=== PATIENT | female | born 1965 | race Caucasian/White ===

== ENCOUNTER 2020-03-21 11:51 | Inpatient (IN) ==
--- NOTE | 2020-03-21 12:00 | Emergency Department Note ---
History of Present Illness General Chief complaint: Abdominal Pain Stated complaint: ABD PAIN Time Seen by Provider: 03/21/20 11:58 History of Present Illness Maximum Pain Intensity: 7 55-year-old female who presents to the emergency department with complaint of intermittent lower abdominal pain that has been increasing and becoming more constant for the past few weeks. The patient reports undergoing a umbilical hernia mesh repair on 02/05/[address] Keller. The patient reports improvement over the following 2 weeks, then started to develop intermittent "cramping". The patient reports that she was referred to her PCP, who checked a urinalysis and diagnosed her with UTI. The patient took amoxicillin without any relief of symptoms. The patient has had intermittent and mild nausea without vomiting. Patient also denies any pain radiating into the back or chest. She denies fever or chills. The patient did have a normal bowel movement yesterday. The patient currently rates her discomfort a 7 out of 10. Home Medications Medication Instructions Recorded Confirmed Type atorvastatin 80 mg PO QAM 02/04/20 03/21/20 History sertraline 200 mg PO QAM 02/04/20 03/21/20 History amlodipine 2.5 mg PO BID 03/21/20 03/21/20 History naproxen 500 mg PO DAILY PRN 03/21/20 03/21/20 History omeprazole 40 mg PO DIRECTED 03/21/20 03/21/20 History Allergies Allergy/AdvReac Type Severity Reaction Status Date / Time No Known Allergies Allergy Verified 02/04/20 23:19 Past Med/Surg History Medical History No pertinent past medical history Obesity Surgical History History of partial hysterectomy Hx of umbilical hernia repair Social History Smoking Status: Never smoker Second Hand Exposure: No; Do You Dip or Chew Tobacco: No; Tobacco Cessation Education Requested by Patient: No Hx Alcohol Use: Yes Alcohol type: beer and wine Hx Substance Use: No Preferred Language: Telugu Communication Ability: Effective Route Sales Associate Required: No Beliefs That Will Affect Care: None marital status: Current Living Situation: Family current occupational status: employed Other Information That Helps Us Care for You: No Feels Safe at Home: Yes Safety Concerns: Feels Safe At This Time Assistive Devices: Glasses Review of Systems 10 system review was performed and was negative except for pertinent positives and negatives as indicated in history of present illness Physical Exam Vital Signs Vital Signs - 24 hr 03/21/20 11:51 03/21/20 13:51 Temperature 36.6 C Temperature Source Temporal Artery Scan Pulse Rate 73 Pulse Rate [Finger] 65 Respiratory Rate 18 16 Blood Pressure 156/101 H Blood Pressure [Right Arm] 166/88 H Blood Pressure Mean 119 Blood Pressure Mean [Right Arm] 114 Blood Pressure Position [Right Arm] Lying Pulse Oximetry 95 97 Oxygen Delivery Method Room Air Room Air Sepsis Recent Fever Within 48 Hours No Sepsis New/Unexplained Change in Mental Status No Sepsis Action Taken by Nursing No Action Required CONSTITUTIONAL: Healthy and well nourished. Patient does not appear in any acute distress. HEENT: Normocephalic, atraumatic. Ears and nares are clear. Mucous membranes are moist. NECK: Full active range of motion without discomfort. LYMPHATICS: No cervical chain adenopathy. RESPIRATORY: Clear to auscultation bilaterally with no wheezing, crackles, rhonchi or stridor. CARDIOVASCULAR: Regular rate and rhythm with no murmurs, rubs or gallops. GASTROINTESTINAL: Bowel sounds present in all quadrants. Patient has mild suprapubic tenderness to palpation. No rigidity, guarding or rebound. Negative CVA tenderness. Negative McBurney's point tenderness. Examination of the umbilical surgical site does not show any obvious soft tissue edema, induration, fluctuance or diastases. MUSCULOSKELETAL: Full range of motion of all joints without discomfort. INTEGUMENTARY: No rash or other significant dermatologic conditions noted. HEMATOLOGIC: No ecchymosis or petechiae. PSYCHIATRIC: Positive affect. NEUROLOGIC: No focal neurologic deficits noted. Course Course Patient history and physical exam were performed. Nurses notes were reviewed. Vital signs were reviewed, showing an elevated blood pressure 156/101. The patient is afebrile. The patient also does not appear in any acute distress. IV access was established, and labs were drawn. The patient was hydrated with a liter normal saline, and was administered IV Tylenol for pain. Review of labs shows a mild leukocytosis with left shift and no bandemia. AST is mildly elevated, otherwise remaining CMP and lipase are normal. Urinalysis shows trace hematuria with 3+ leukocytes. This was a contaminated sample; urine culture was ordered. CT with IV contrast of the abdomen and pelvis confirms a small bowel obstruction with observed transition point. The case was further discussed with Dr. Hernandez, ED attending physician, who recommended sling and NG tube, and consulting general surgery. NG tube was ordered. The case was then further discussed with Dr. Keller, general surgeon on- call who also performed the patient's surgery. Dr. Keller examined the patient, and will be admitting the patient for further observation. Dr. Keller agrees with NG placement with low intermittent suction. Please see Dr. Keller's dictation for further treatment and final disposition. Administered Medications Discontinued Medications Acetaminophen (Acetaminophen 1000 Mg/100 Ml Iv) 1,000 mg IV ONE ONE Stop: 03/21/20 12:16 Last Admin: 03/21/20 13:38 Dose: 1,000 mg Documented by: [id number] Sodium Chloride (Nss 1000ml) 1,000 mls @ 999 mls/hr IV .Q1H1M ONE Stop: 03/21/20 13:13 Last Infusion: 03/21/20 13:41 Dose: 0 mls/hr Documented by: [id number] Admin: 03/21/20 12:40 Dose: 999 mls/hr Documented by: [id number] Ciprofloxacin (Cipro / D5w) 400 mg in 200 mls @ 100 mls/hr IV NOW ONE Stop: 03/21/20 18:29 Last Admin: 03/21/20 18:39 Dose: 100 mls/hr Documented by: [id number] Metronidazole (Flagyl) 500 mg in 100 mls @ 100 mls/hr IV NOW ONE Stop: 03/21/20 17:29 Last Infusion: 03/21/20 18:39 Dose: 0 mls/hr Documented by: [id number] Admin: 03/21/20 17:22 Dose: 100 mls/hr Documented by: [id number] Ioversol (Ioversol 100ml) 93 ml IV ONCE ONE Stop: 03/21/20 13:23 Last Admin: 03/21/20 13:22 Dose: 93 ml Documented by: [id number] Medical Decision Making Medical Records Attestation: I reviewed the patient's medical records. Home Medications Current Medication List: was personally reviewed by me Laboratory Data Attestation: I reviewed the patient's lab results. Result diagrams: 03/21/20 12:30 03/21/20 12:30 Lab Results 03/21/20 03/21/20 03/21/20 Range/Units 12:25 12:30 12:30 WBC 11.16 H (4.8-10.8) K/uL RBC 4.52 (4.2-5.4) M/uL Hgb 13.9 (12.0-16.0) g/dL Hct 41.4 (37-47) % MCV 91.6 (80-100) fL MCH 30.8 (25-34) pg MCHC 33.6 (32-36) g/dL RDW Std Deviation 45.8 (36.4-46.3) fL RDW Coeff of Fadumo 13.7 (11.5-14.5) % Plt Count 263 (130-400) K/uL MPV 11.2 H (7.4-10.4) fL Immature Gran % (Auto) 0.2 % Neut % (Auto) 72.5 % Lymph % (Auto) 17.8 % Teller % (Auto) 6.8 % Eos % (Auto) 2.3 % Baso % (Auto) 0.4 % Neut # (Auto) 8.08 H (1.4-6.5) K/uL Lymph # (Auto) 1.99 (1.2-3.4) K/uL Teller # (Auto) 0.76 H (0.11-0.59) K/uL Eos # (Auto) 0.26 (0-0.5) K/uL Baso # (Auto) 0.05 (0-0.2) K/uL Immature Gran # (Auto) 0.02 (0.00-0.02) K/uL Sodium 141 (136-145) mmol/L Potassium 3.9 (3.5-5.1) mmol/L Chloride 107 (98-107) mmol/L Carbon Dioxide 25 (21-32) mmol/L Anion Gap 9.0 (3-11) BUN 12 (7-18) mg/dl Creatinine 0.78 (0.6-1.2) mg/dl Est Cr Clr Drug Dosing 85.7 ml/min Est GFR ( Amer) 97.8 Est GFR (Non-Af Amer) 84.4 BUN/Creatinine Ratio 14.9 (10-20) Glucose 93 (70-99) mg/dl Calcium 9.5 (8.5-10.1) mg/dl Total Bilirubin 0.6 (0.2-1) mg/dl AST 49 H (15-37) U/L ALT 64 (12-78) U/L Alkaline Phosphatase 114 (45-117) U/L Total Protein 8.2 (6.4-8.2) gm/dl Albumin 3.7 (3.4-5.0) gm/dl Globulin 4.5 H (2.5-4.0) gm/dl Albumin/Globulin Ratio 0.8 L (0.9-2) Lipase 182 (73-393) U/L Urine Color Yellow Urine Appearance Clear (Clear) Urine pH 6.5 (4.5-7.5) Ur Specific [place] 1.018 (1.000-1.030) Urine Protein Negative (Negative) Urine Glucose (UA) Negative (Negative) Urine Ketones Negative (Negative) Urine Blood Trace H (Negative) Urine Nitrite Negative (Negative) Urine Bilirubin Negative (Negative) Urine Urobilinogen Negative (Negative) Ur Leukocyte Esterase 3+ H (Negative) Urine WBC (Auto) >30 H (0-5) /hpf Urine RBC (Auto) 0-4 (0-4) /hpf U Hyaline Cast (Auto) 5-10 H (0-5) /lpf U Epithel Cells (Auto) >30 H (0-5) /lpf Urine Bacteria (Auto) 1+ H (Negative) Imaging Data Attestation: I personally reviewed and interpreted this imaging study as follows: My Impression: My interpretation of a CT with IV contrast of the abdomen and pe lvis shows evidence for a small bowel obstruction. Radiologist also makes mention of a 6 cm fluid collection within the subcutaneous tissue at the operative site. Cholelithiasis is also noted. No evidence for diverticulitis or appendicitis. Radiologist report was also reviewed. Radiologist's Impression: ABDOMEN AND PELVIS CT WITH IV CONTRAST CT DOSE: 898.56 mGy.cm HISTORY: Acute generalized abdominal pain with prior herniorrhaphy Lower abd ominal pain - hx umbilical herniorrhaphy TECHNIQUE: Multiaxial CT images of the abdomen and pelvis were performed following the IV administration of 93 cc of Optiray 320, A dose lowering technique was utilized adhering to the principles of ALARA. COMPARISON STUDY: CT abdomen and pelvis 02/04/2020. FINDINGS: Imaged inferior cardiac chambers are unremarkable. Clear lung bases. No pneumatosis or pneumoperitoneum. Pancreas, spleen and adrenal glands are unremarkable. Cholelithiasis without CT evidence of acute cholecystitis. Unremarkable liver. Patency of the hepatic and portal veins. Unremarkable kidneys, ureters and urinary bladder. Unremarkable uterus. Cystic foci of the right adnexum redemonstrated measuring up to 4.0 cm. No aortic aneurysm or adenopathy. Mild nonspecific stranding of the mid mesentery is unchanged. Noninflamed appendix. Dilated stool-filled loops of small bowel within the right mid abdomen and upper pelvis anteriorly measure up to 3.4 cm transversely. There is a transition point noted on image 262 series 3 which demonstrates moderate circumferential wall thickening. There is adjacent perinephric stranding and tethering of the small bowel on image 268 series 3. Trace interloop edema with a few scattered mildly prominent adjacent lymph nodes. Prior herniorrhaphy with 6.0 x 2.1 x 4.7 cm fluid collection within the subcutaneous tissues at the operative bed. Unremarkable soft tissues. The bones appear intact. No acute fracture or suspicious bone lesion. Moderate space narrowing at L5-S1 with posterior disc osteophyte complex. IMPRESSION: 1. Small bowel obstruction with transition point noted within the anterior mid aspect of the lower abdomen/upper pelvis, possibly secondary to underlying small bowel adhesions. There is moderate wall thickening at the transition point. 2. No pneumatosis or pneumoperitoneum. 3. Recent periumbilical hernia repair with 6.0 cm fluid collection within the subcutaneous tissues at the operative bed suggestive of a seroma. Sterility cannot be determined by imaging alone. 4. Normal appendix 5. Cholelithiasis. Blood Pressure Blood Pressure Findings: Elevated blood pressure MDM Narrative She presents emergency department with complaint of intermittent abdominal pain that is now becoming more constant in nature. The patient is status post umbilical hernia mesh repair approximately 6.[address] imaging today is concerning for small bowel obstruction, possibly secondary to adhesions. Fortunately, the patient has not had any significant nausea or vomiting. She also had a normal bowel movement yesterday. The patient is afebrile and has no significant leukocytosis to suggest overwhelming infection. Additional lab work is not suggestive of pancreatitis, cholecystitis or hepatitis. CT does show leny dence for cholelithiasis. The patient will be admitted for further observation per conversation with Dr. Keller. Impression & Plan Small bowel obstruction, Hx of umbilical hernia repair Discharge Plan Visit Data Chief Complaint: Abdominal Pain Stated Complaint: ABD PAIN ED Provider: Sabino Hernandez ED Midlevel Provider: Oni Upton Discharge Problem: Small bowel obstruction, Hx of umbilical hernia repair Patient Disposition: Admitted As Inpatient Discharge Instructions Interventions: ED Discharge Assessment Last Done: 03/21/20 18:12
[2020-03-21] MEDS ORDERED: SODIUM CHLORIDE 0.9% 1000ML 1,000 ML IV ONE (12:13)
[2020-03-21] MEDS ORDERED: ACETAMINOPHEN 1000 MG/100 ML IV IV ONE (12:15)
[2020-03-21 12:46] LABS: Basophils # (auto) 0.05 K/uL (0-0.2); Basophils % (auto) 0.4 %; Eosinophils # (auto) 0.26 K/uL (0-0.5); Eosinophils % (auto) 2.3 %; Hematocrit (blood only) 41.4 % (37-47); Hemoglobin 13.9 g/dL (12.0-16.0); Immature Granulocytes # (auto) 0.02 K/uL (0.00-0.02); Immature Granulocytes % (auto) 0.2 %; Lymphocytes # (auto) 1.99 K/uL (1.2-3.4); Lymphocytes % (auto) 17.8 %; Mean Corpuscular Hemoglobin 30.8 pg (25-34); Mean Corpuscular Hgb Conc 33.6 g/dL (32-36); Mean Corpuscular Volume 91.6 fL (80-100); Mean Platelet Volume 11.2 fL (7.4-10.4); Monocytes # (auto) 0.76 K/uL (0.11-0.59); Monocytes % (auto) 6.8 %; Neutrophils # (auto) 8.08 K/uL (1.4-6.5); Neutrophils % (auto) 72.5 %; Platelet Count 263 K/uL (130-400); RDW Coefficient of Variation 13.7 % (11.5-14.5); RDW Standard Deviation 45.8 fL (36.4-46.3); Red Blood Count 4.52 M/uL (4.2-5.4); White Blood Count 11.16 K/uL (4.8-10.8)
[2020-03-21 12:49] LABS: Appearance Urine Clear (Clear); Bacteria Urine Automated 1+ (Negative); Bilirubin Urine Negative (Negative); Blood Urine Trace (Negative); Color Urine Yellow; Epithelial Cell Urine Auto >30 /lpf (0-5); Glucose Urine UA Negative (Negative); Ketones Urine Negative (Negative); Leukocyte Esterase Urine 3+ (Negative); Nitrite Urine Negative (Negative); Protein Urine Negative (Negative); RBC Urine Automated 0-4 /hpf (0-4); Specific Gravity Urine 1.018 (1.000-1.030); Urobilinogen Urine Negative (Negative); WBC Urine Automated >30 /hpf (0-5); pH Urine 6.5 (4.5-7.5)
[2020-03-21 13:03] LABS: Albumin Level 3.7 gm/dl (3.4-5.0); BUN Creatinine Ratio 14.9 (10-20); Calcium 9.5 mg/dl (8.5-10.1); Creatinine Clr Calc Pharmacy 85.7 ml/min; Est GFR (African American) 97.8; Est GFR (Non-African American) 84.4; Potassium 3.9 mmol/L (3.5-5.1)
[2020-03-21 13:06] LABS: Albumin Globulin Ratio 0.8 (0.9-2); Bilirubin,Total 0.6 mg/dl (0.2-1); Globulin 4.5 gm/dl (2.5-4.0); Total Protein 8.2 gm/dl (6.4-8.2)
[2020-03-21] MEDS ORDERED: OPTIRAY 320 100ml IV ONE (13:22)
--- NOTE | 2020-03-21 14:05 | CT Scan Report ---
ABDOMEN AND PELVIS CT WITH IV CONTRAST CT DOSE: 898.56 mGy.cm HISTORY: Acute generalized abdominal pain with prior herniorrhaphy Lower abdominal pain - hx umbilic al herniorrhaphy TECHNIQUE: Multiaxial CT images of the abdomen and pelvis were performed following the IV administrat ion of 93 cc of Optiray 320, A dose lowering technique was utilized adhering to the principles of AL JASPREET. COMPARISON STUDY: CT abdomen and pelvis 02/04/2020. FINDINGS: Imaged inferior cardiac chambers are unremarkable. Clear lung bases. No pneumatosis or pneu moperitoneum. Pancreas, spleen and adrenal glands are unremarkable. Cholelithiasis without CT evidenc e of acute cholecystitis. Unremarkable liver. Patency of the hepatic and portal veins. Unremarkable kidneys, ureters and urinary bladder. Unremarkable uterus. Cystic foci of the right adne xum redemonstrated measuring up to 4.0 cm. No aortic aneurysm or adenopathy. Mild nonspecific stranding of the mid mesentery is unchanged. Noninflamed appendix. Dilated stool-xiomara led loops of small bowel within the right mid abdomen and upper pelvis anteriorly measure up to 3.4 c m transversely. There is a transition point noted on image 262 series 3 which demonstrates moderate c ircumferential wall thickening. There is adjacent perinephric stranding and tethering of the small nathan wel on image 268 series 3. Trace interloop edema with a few scattered mildly prominent adjacent lymph nodes. Prior herniorrhaphy with 6.0 x 2.1 x 4.7 cm fluid collection within the subcutaneous tissues at the operative bed. Unremarkable soft tissues. The bones appear intact. No acute fracture or suspicious bone lesion. Mode rate space narrowing at L5-S1 with posterior disc osteophyte complex. IMPRESSION: 1. Small bowel obstruction with transition point noted within the anterior mid aspect of the lower ab domen/upper pelvis, possibly secondary to underlying small bowel adhesions. There is moderate wall th ickening at the transition point. 2. No pneumatosis or pneumoperitoneum. 3. Recent periumbilical hernia repair with 6.0 cm fluid collection within the subcutaneous tissues at the operative bed suggestive of a seroma. Sterility cannot be determined by imaging alone. 4. Normal appendix 5. Cholelithiasis. ACT 112: Negative or not required by law. The above report was generated using voice recognition software. It may contain grammatical, syntax o r spelling errors. Electronically signed by: Arturo Ferguson M.D. 03/21/2020 2:04 PM
--- NOTE | 2020-03-21 15:26 | Surgery Consultation ---
Date of Consultation March 21, 2020 Assessment & Plan (1) Small bowel obstruction: pt is a 55 year-old female who presents to Er with acute abdominal pain, IMP: SBO, UTI, Plan, no emergent surgery indication now, I recommend to admit pt to hospital conservative treatment first, NPO, NG Tube, to lower intermittent suction, IV fluid, IV antibiotic, repeat labs in morning, KUB in morning, pt may need surgery if pt 's symptoms are getting worse, pt understood, will F/U, D/W ER attending. pt agrees with the plan, I answered all questions, COVID -19 test Present on Admission?: Yes (2) UTI (urinary tract infection): History of Present Illness History of Present Illness Chief complaint: Abdominal Pain Stated complaint: ABD PAIN Time Seen by Provider: 03/21/20 11:58 History of Present Illness Maximum Pain Intensity: 7 55-year-old female who presents to the emergency department with complaint of intermittent lower abdominal pain that has been increasing and becoming more constant for the past few weeks. The patient reports undergoing a umbilical hernia mesh repair on 02/05/2020. The patient reports improvement over the next 2 weeks, then started to develop intermittent "cramping". The patient reports that she was referred to her PCP, who checked a urinalysis and diagnosed her with UTI. The patient took amoxicillin without any relief of symptoms. The p atient has had intermittent and mild nausea without vomiting. Patient also denies any pain radiating into the back or chest. She denies fever or chills. The patient currently rates her discomfort a 7 out of 10. I ( yousif Keller MD) got a call for consult SBO, I reviewed pt's H/P, labs, CT scan with pt, pt has mild abdominal pain, no nausea, no vomiting, last BM yesterday. pt had open repair incarcerated umbilical hernia with mesh on 01/2020. Home Medications Medication Instructions Recorded Confirmed Type atorvastatin 80 mg PO QAM 02/04/20 03/21/20 History sertraline 200 mg PO QAM 02/04/20 03/21/20 History amlodipine 2.5 mg PO BID 03/21/20 03/21/20 History naproxen 500 mg PO DAILY PRN 03/21/20 03/21/20 History omeprazole 40 mg PO DIRECTED 03/21/20 03/21/20 History Allergies Allergy/AdvReac Type Severity Reaction Status Date / Time No Known Allergies Allergy Verified 02/04/20 23:19 Past Med/Surg History Medical History No pertinent past medical history Obesity Surgical History History of partial hysterectomy Hx of umbilical hernia repair Social History Smoking Status: Never smoker Preferred Language: Norwegian marital status: Current Living Situation: Spouse and Family current occupational status: employed Feels Safe at Home: Yes Review of Systems 10 system review was performed and was negative except for pertinent positives and negatives as indicated in history of present illness Allergies Allergy/AdvReac Type Severity Reaction Status Date / Time No Known Allergies Allergy Verified 02/04/20 23:19 Home Medications Medication Instructions Recorded Confirmed Type atorvastatin 80 mg PO QAM 02/04/20 03/21/20 History sertraline 200 mg PO QAM 02/04/20 03/21/20 History amlodipine 2.5 mg PO BID 03/21/20 03/21/20 History naproxen 500 mg PO DAILY PRN 03/21/20 03/21/20 History omeprazole 40 mg PO DIRECTED 03/21/20 03/21/20 History Patient History Medical History No pertinent past medical history Obesity Surgical History History of partial hysterectomy Hx of umbilical hernia repair Social History Smoking Status: Never smoker Preferred Language: Norwegian marital status: Current Living Situation: Spouse and Family current occupational status: employed Feels Safe at Home: Yes Review of Systems Review of Systems: All systems reviewed & are unremarkable except as noted in HPI & below Constitutional: as per Subjective / HPI Eyes: as per Subjective / HPI Ear, Nose, Mouth, Throat: as per Subjective / HPI Respiratory: as per Subjective / HPI Cardiovascular: as per Subjective / HPI Gastrointestinal: as per Subjective / HPI open repair incarcerated umbilical hernia with mesh 01/2020 Genitourinary: as per Subjective / HPI UTI Musculoskeletal: as per Subjective / HPI Integumentary: as per Subjective / HPI Neurologic: as per Subjective / HPI Psychiatric: as per Subjective / HPI Endocrine: as per Subjective / HPI Hematologic / Lymphatic: as per Subjective / HPI Allergy / Immunological: as per Subjective / HPI Physical Exam Constitutional: WD/WN, vitals as above well developed and well nourished Eyes: PERRL, conjunctivae normal, anicteric sclerae ENMT: external ear and nose normal, oropharynx normal Neck: trachea midline, no thyromegaly Respiratory: normal respiratory effort, lungs clear to auscultation normal respiratory effort Cardiovascular: RRR, no murmur, no edema Rate/Rhythm: regular rate and regular rhythm Heart Sounds: normal S1 and normal S2 Gastrointestinal (Abdomen): Percussion/Palpation: abdomen soft mild tenderness scooter-umbilical area, no rebound pain, no distend, no redness, the incision heals well, no bulging, BS + Musculoskeletal: no cyanosis or clubbing, extremities motor strength 5/5 Skin: no rashes, warm and dry Neurologic: awake Psychiatric: Orientation: alert and oriented x 3 Results & Data ([facility]) Vital Signs (Past 12 Hours) Vital Signs Temp Pulse Pulse Resp BP BP Pulse Ox 03/21/20 13:51 65 16 166/88 H 97 03/21/20 11:51 36.6 C 73 18 156/101 H 95 Laboratory Results Abnormal lab results 03/21/20 03/21/20 03/21/20 Range/Units 12:25 12:30 12:30 WBC 11.16 H (4.8-10.8) K/uL MPV 11.2 H (7.4-10.4) fL Neut # (Auto) 8.08 H (1.4-6.5) K/uL [place]inger # (Auto) 0.76 H (0.11-0.59) K/uL AST 49 H (15-37) U/L Globulin 4.5 H (2.5-4.0) gm/dl Albumin/Globulin Ratio 0.8 L (0.9-2) Urine Blood Trace H (Negative) Ur Leukocyte Esterase 3+ H (Negative) Urine WBC (Auto) >30 H (0-5) /hpf U Hyaline Cast (Auto) 5-10 H (0-5) /lpf U Epithel Cells (Auto) >30 H (0-5) /lpf Urine Bacteria (Auto) 1+ H (Negative) Diagnostic Findings ABDOMEN AND PELVIS CT WITH IV CONTRAST CT DOSE: 898.56 mGy.cm HISTORY: Acute generalized abdominal pain with prior herniorrhaphy Lower abdominal pain - hx umbilical herniorrhaphy TECHNIQUE: Multiaxial CT images of the abdomen and pelvis were performed following the IV administration of 93 cc of Optiray 320, A dose lowering technique was utilized adhering to the principles of ALARA. COMPARISON STUDY: CT abdomen and pelvis 02/04/2020. FINDINGS: Imaged inferior cardiac chambers are unremarkable. Clear lung bases. No pneumatosis or pneumoperitoneum. Pancreas, spleen and adrenal glands are unremarkable. Cholelithiasis without CT evidence of acute cholecystitis. Unremarkable liver. Patency of the hepatic and portal veins. Unremarkable kidneys, ureters and urinary bladder. Unremarkable uterus. Cystic foci of the right adnexum redemonstrated measuring up to 4.0 cm. No aortic aneurysm or adenopathy. Mild nonspecific stranding of the mid mesentery is unchanged. Noninflamed appendix. Dilated stool-filled loops of small bowel within the right mid abdomen and upper pelvis anteriorly measure up to 3.4 cm transversely. There is a transition point noted on image 262 series 3 which demonstrates moderate circumferential wall thickening. There is adjacent perinephric stranding and tethering of the small bowel on image 268 series 3. Trace interloop edema with a few scattered mildly prominent adjacent lymph nodes. Prior herniorrhaphy with 6.0 x 2.1 x 4.7 cm fluid collection within the subcutaneous tissues at the operative bed. Unremarkable soft tissues. The bones appear intact. No acute fracture or suspicious bone lesion. Moderate space narrowing at L5-S1 with posterior disc osteophyte complex. IMPRESSION: 1. Small bowel obstruction with transition point noted within the anterior mid aspect of the lower abdomen/upper pelvis, possibly secondary to underlying small bowel adhesions. There is moderate wall thickening at the transition point. 2. No pneumatosis or pneumoperitoneum. 3. Recent periumbilical hernia repair with 6.0 cm fluid collection within the subcutaneous tissues at the operative bed suggestive of a seroma. Sterility cannot be determined by imaging alone. 4. Normal appendix 5. Cholelithiasis.
[2020-03-21] MEDS ORDERED: HYDROmorphone INJ 1 MG/ML SYRINGE IV PRN (15:35)
[2020-03-21] MEDS ORDERED: oxyCODONE/ACETAMINOPHEN 5mg/325mg TAB PO PRN (15:35)
[2020-03-21] MEDS ORDERED: CIPROFLOXACIN / D5W 400 MG/200 ML BAG IV ONE (16:30)
[2020-03-21] MEDS ORDERED: metroNIDAZOLE 500 MG/100 ML BAG IV ONE (16:30)
--- NOTE | 2020-03-21 17:24 | XRay Report ---
XR chest 1V portable HISTORY: 55 years-old Female Confirm NG placement status post placement of an enteric tube COMPARISON: CT abdomen and pelvis of same day, acute abdominal series radiographs 08/17/2019 TECHNIQUE: Portable AP view of the chest FINDINGS: Cardiomediastinal and hilar silhouettes are within normal limits. No pneumothorax, pleural effusion, airspace consolidation or overt pulmonary edema. Degenerative changes of the shoulders and spine. Ent yazmin tube distal tip terminates in the expected location of the distal gastric body. IMPRESSION: Distal tip of the enteric tube terminates within the abdominal left upper quadrant in the region of the distal gastric body. ACT 112: Negative or not required by law. The above report was generated using voice recognition software. It may contain grammatical, syntax o r spelling errors. Electronically signed by: Arturo Ferguson M.D. 03/21/2020 5:23 PM
[2020-03-21] MEDS ORDERED: NON-FORMULARY MEDICATION (Omeprazole 40 mg capsule,delayed release(DR/EC)) PO SCH (18:36)
[2020-03-21] MEDS ORDERED: NAPROXEN 250 MG TAB PO PRN (18:36)
[2020-03-21] MEDS: PANTOprazole 40 MG in SYRINGE 0 ML IV SCH (21:00)
[2020-03-21] MEDS: D5W AND 1/2NSS + 20MEQ KCL 20 MEQ/1,000 ML BAG IV SCH (21:00)
[2020-03-21] MEDS ORDERED: amLODIPine BESYLATE 5 MG TAB PO SCH (21:00)
[2020-03-21] MEDS: hydrALAZINE HCL 20 MG/ML VIAL IV PRN (21:41)
--- NOTE | 2020-03-21 23:25 | Consultation Report ---
DATE OF CONSULTATION: 03/21/2020 CHIEF COMPLAINT: Small-bowel obstruction. HISTORY OF PRESENT ILLNESS: This is a 55-year-old female with past medical history significant for hyperlipidemia, Raynaud's disease, fatty liver, depression with anxiety, who presents with abdominal pain. The patient had incarcerated umbilical hernia repair on 02/05/2020 and she says that for a couple of weeks she was fine and after that she again started having abdominal cramps, the pain like previous, and it got worse, no nausea, no vomiting. Last bowel movement was yesterday. It was not getting better so She came to the ER and CAT scan is showing small-bowel obstruction and surgery admitted the patient. On conservative management . But the patient is having hypertensive episodes, so we were consulted. The patient has no history of hypertension. She takes amlodipine for Raynaud's disease. The patient is pain, and also the patient is anxious as her is out of the town and her 18-year-old is taking care of her dogs and also 95-year-old [id number]. Otherwise, she is doing fine. Denies any headache, no blurred visions, no earache, no runny nose, no sore throat, no cough, no nausea, no fever, no chills, no chest pain, no shortness of breath. Normal bladder movements. Currently resting comfortably and hemodynamically stable. ALLERGIES: No known drug allergies. PAST MEDICAL HISTORY: As mentioned above. PAST SURGICAL HISTORY: Colonoscopy, partial hysterectomy. MEDICATIONS: The patient is on amlodipine 5 mg p.o. daily, atorvastatin 80 mg p.o. a.m., naproxen p.r.n., omeprazole 40 mg p.r.n., Zoloft 200 mg p.o. a.m. FAMILY HISTORY: Significant for father had heart disorder, mother had hypertension, maternal grandmother had diabetes, paternal grandfather had heart disorder and stroke. SOCIAL HISTORY: . No smoking. Alcohol occasional. No drug use. REVIEW OF SYSTEMS: As per HPI. Rest of the review of systems negative. PHYSICAL EXAMINATION: GENERAL: The patient is obese, not in acute distress. VITAL SIGNS: Temperature 36.4, pulse 65, respiratory rate 16, blood pressure 172/95, oxygen 96% on room air. HEENT: Head atraumatic. NG tube seen. NECK: No neck masses seen. CARDIOVASCULAR: S1, S2 heard. Regular rate and rhythm. No murmur, no gallop. RESPIRATORY SYSTEM: Normal AP diameter. No accessory muscle use. No wheezing, no crackles. ABDOMEN: Soft, bowel sounds very sluggish, nontender. No distention. CENTRAL NERVOUS SYSTEM: Cranial nerves II through XII grossly intact, nonfocal. EXTREMITIES: No edema, no erythema. LABORATORY DATA: WBC 11.1, hemoglobin 13.9, hematocrit 41.4, platelets 263. Sodium 141, potassium 3.9, chloride 107, bicarbonate 25, BUN 12, creatinine 0.7, serum glucose 93, calcium 9.5, total bilirubin 0.6, AST 49, ALT 64, alkaline phosphatase 114, lipase 182. Urinalysis positive for leukocyte esterase and positive for bacteria. SARS-CoV-2 RNA negative. IMAGING DATA: Chest x-ray, distal tip of the NG tube terminates within the abdominal left upper quadrant region of the distal gastric body. CT of abdomen and pelvis shows small-bowel obstruction with transition point noted within the anteromedial aspect of the lower abdomen, upper pelvis, possibly secondary to underlying small bowel adhesions. There is moderate wall thickening of the transition point. No pneumatosis or pneumoperitoneum. Recent periumbilical hernia repair with 6 cm fluid collection within the subcutaneous tissues of the operative bed suggestive of seroma. Normal appendix. Cholelithiasis. ASSESSMENT AND PLAN: This is a 55-year-old female who presents with abdominal pain, found to have small-bowel obstruction. 1. Abdominal pain, small-bowel obstruction: Recent incarcerated umbilical hernia repair with mesh placement on 02/05/2020. Surgery admitted the patient. Currently, the patient is n.p.o., IV fluids, NG tube. Further management as per surgery.The patient also started on antibiotics as per surgery. 2. Urinary tract infection, on IV Cipro. We will follow the cultures. 3. Anxiety and depression: Continue Zoloft when able to take po.. 4. Hypertension, could be situational from the anxiety and also from the pain. Will place on IV hydralazine p.r.n. and monitor. 5. History of Raynaud's disease. Can give amlodipine whenever the patient can take p.o. 6. Disposition, as per surgery. [facility]
[2020-03-22] MEDS: metroNIDAZOLE 500 MG/100 ML BAG IV SCH ×3 (01:15→18:32)
[2020-03-22] MEDS: CIPROFLOXACIN / D5W 400 MG/200 ML BAG IV SCH ×2 (05:47→18:29)
[2020-03-22 05:54] LABS: Basophils # (auto) 0.05 K/uL (0-0.2); Basophils % (auto) 0.6 %; Eosinophils # (auto) 0.27 K/uL (0-0.5); Eosinophils % (auto) 3.1 %; Hemoglobin 13.4 g/dL (12.0-16.0); Immature Granulocytes # (auto) 0.01 K/uL (0.00-0.02); Immature Granulocytes % (auto) 0.1 %; Lymphocytes # (auto) 2.06 K/uL (1.2-3.4); Lymphocytes % (auto) 23.3 %; Mean Corpuscular Hemoglobin 30.5 pg (25-34); Mean Corpuscular Hgb Conc 33.5 g/dL (32-36); Mean Corpuscular Volume 90.9 fL (80-100); Mean Platelet Volume 11.3 fL (7.4-10.4); Monocytes # (auto) 0.89 K/uL (0.11-0.59); Monocytes % (auto) 10.1 %; Neutrophils # (auto) 5.56 K/uL (1.4-6.5); Neutrophils % (auto) 62.8 %; Platelet Count 266 K/uL (130-400); RDW Coefficient of Variation 13.7 % (11.5-14.5); RDW Standard Deviation 45.8 fL (36.4-46.3); White Blood Count 8.84 K/uL (4.8-10.8)
[2020-03-22 06:19] LABS: Albumin Level 3.4 gm/dl (3.4-5.0); BUN Creatinine Ratio 10.5 (10-20); Creatinine Clr Calc Pharmacy 83.8 ml/min; Est GFR (African American) 96.3; Est GFR (Non-African American) 83.1; Potassium 3.6 mmol/L (3.5-5.1)
[2020-03-22] MEDS: hydrALAZINE HCL 20 MG/ML VIAL IV PRN ×2 (06:20→20:43)
[2020-03-22 06:22] LABS: Albumin Globulin Ratio 0.9 (0.9-2); Bilirubin,Total 0.6 mg/dl (0.2-1); Globulin 3.9 gm/dl (2.5-4.0); Total Protein 7.3 gm/dl (6.4-8.2)
--- NOTE | 2020-03-22 07:33 | XRay Report ---
KUB CLINICAL HISTORY: Small bowel obstruction. COMPARISON STUDY: CT of the abdomen and pelvis March 21, 2020. FINDINGS: Tip of nasogastric tube is within the distal body of the stomach. Two calcified gallstones are noted. No dilated loops of bowel are identified on this examination however fluid-filled small nathan wel loops may not be visualized by radiography. IMPRESSION: 1. No dilated loops of bowel identified however fluid-filled small bowel loops may not be evident by radiography. 2. Tip of nasogastric tube within the distal body of the stomach. 3. Cholelithiasis. ACT 112: Negative or not required by law. Electronically signed by: Giacomo Garcia M.D. 03/22/2020 7:32 AM
[2020-03-22] MEDS: amLODIPine BESYLATE 5 MG TAB PO SCH (07:46)
[2020-03-22] MEDS: SERTRALINE HCL 100 MG TABLET PO SCH (07:47)
[2020-03-22] MEDS: D5W AND 1/2NSS + 20MEQ KCL 20 MEQ/1,000 ML BAG IV SCH ×3 (07:48→23:10)
[2020-03-22] MEDS ORDERED: bisacodyL 10 MG SUPP PR STA (08:34)
--- NOTE | 2020-03-22 08:36 | Surgery Progress Note ---
Date of Service F/U SBO, pt is doing better, no abdominal pain, passed some gas, no fever,NG tube 325ml, KUB no SBO, March 22, 2020 Assessment & Plan (1) Small bowel obstruction: pt is a 55 year-old female who presents to Er with acute abdominal pain, IMP: SBO, UTI, Plan, no emergent surgery indication now, I recommend to admit pt to hospital conservative treatment first, NPO, NG Tube, to lower intermittent suction, IV fluid, IV antibiotic, repeat labs in morning, KUB in morning, pt may need surgery if pt 's symptoms are getting worse, pt understood, will F/U, D/W ER attending. pt agrees with the plan, I answered all questions, COVID -19 test 03/22/2020 8:38AM F/U SBO doing better, passed some gas, KUB- no SBO, keep NG tube now, dulcolax 10mg NC, will F/U (2) UTI (urinary tract infection): Admission and Anticipated Discharge Date Admission Date: March 21, 2020 Review of Systems Constitutional: as per Subjective / HPI Eyes: as per Subjective / HPI Ear, Nose, Mouth, Throat: as per Subjective / HPI Respiratory: as per Subjective / HPI Cardiovascular: as per Subjective / HPI Gastrointestinal: as per Subjective / HPI open repair incarcerated umbi lical hernia with mesh 01/2020 Genitourinary: as per Subjective / HPI UTI Musculoskeletal: as per Subjective / HPI Integumentary: as per Subjective / HPI Neurologic: as per Subjective / HPI Psychiatric: as per Subjective / HPI Endocrine: as per Subjective / HPI Hematologic / Lymphatic: as per Subjective / HPI Allergy / Immunological: as per Subjective / HPI Physical Exam Constitutional: WD/WN, vitals as above well developed and well nourished Eyes: PERRL, conjunctivae normal, anicteric sclerae ENMT: external ear and nose normal, oropharynx normal Neck: trachea midline, no thyromegaly Respiratory: normal respiratory effort, lungs clear to auscultation normal respiratory effort Cardiovascular: RRR, no murmur, no edema Rate/Rhythm: regular rate and regular rhythm Heart Sounds: normal S1 and normal S2 Gastrointestinal (Abdomen): Percussion/Palpation: abdomen soft Musculoskeletal: no cyanosis or clubbing, extremities motor strength 5/5 Skin: no rashes, warm and dry Neurologic: awake Psychiatric: Orientation: alert and oriented x 3 Results & Data ([facility]) Vital Signs (Past 12 Hours) Vital Signs Temp Pulse Resp BP BP Pulse Ox 03/22/20 06:55 36.4 C L 62 18 188/102 H 97 03/22/20 06:20 61 184/95 H 03/21/20 22:38 36.4 C L 65 16 145/97 H 95 03/21/20 20:46 65 172/95 H Laboratory Results Abnormal lab results 03/21/20 03/21/20 03/21/20 Range/Units 12:25 12:30 12:30 WBC 11.16 H (4.8-10.8) K/uL MPV 11.2 H (7.4-10.4) fL Neut # (Auto) 8.08 H (1.4-6.5) K/uL [place] # (Auto) 0.76 H (0.11-0.59) K/uL Glucose (70-99) mg/dl AST 49 H (15-37) U/L Globulin 4.5 H (2.5-4.0) gm/dl Albumin/Globulin Ratio 0.8 L (0.9-2) Urine Blood Trace H (Negative) Ur Leukocyte Esterase 3+ H (Negative) Urine WBC (Auto) >30 H (0-5) /hpf U Hyaline Cast (Auto) 5-10 H (0-5) /lpf U Epithel Cells (Auto) >30 H (0-5) /lpf Urine Bacteria (Auto) 1+ H (Negative) 03/22/20 03/22/20 Range/Units 05:13 05:13 WBC (4.8-10.8) K/uL MPV 11.3 H (7.4-10.4) fL Neut # (Auto) (1.4-6.5) K/uL [place] # (Auto) 0.89 H (0.11-0.59) K/uL Glucose 112 H (70-99) mg/dl AST (15-37) U/L Globulin (2.5-4.0) gm/dl Albumin/Globulin Ratio (0.9-2) Urine Blood (Negative) Ur Leukocyte Esterase (Negative) Urine WBC (Auto) (0-5) /hpf U Hyaline Cast (Auto) (0-5) /lpf U Epithel Cells (Auto) (0-5) /lpf Urine Bacteria (Auto) (Negative) Diagnostic Findings KUB CLINICAL HISTORY: Small bowel obstruction. COMPARISON STUDY: CT of the abdomen and pelvis March 21, 2020. FINDINGS: Tip of nasogastric tube is within the distal body of the stomach. Two calcified gallstones are noted. No dilated loops of bowel are identified on this examination however fluid-filled small bowel loops may not be visualized by radiography. IMPRESSION: 1. No dilated loops of bowel identified however fluid-filled small bowel loops may not be evident by radiography. 2. Tip of nasogastric tube within the distal body of the stomach. 3. Cholelithiasis.
[2020-03-22] MEDS: PANTOprazole 40 MG in SYRINGE 0 ML IV SCH ×2 (08:37→20:08)
[2020-03-22] MEDS: ATORVASTATIN 40 MG TAB PO SCH (08:37)
--- NOTE | 2020-03-22 08:42 | Hospitalist Progress Note ---
Date of Service March 22, 2020 Assessment & Plan (1) Hypertension: (2) Small bowel obstruction: (3) UTI (urinary tract infection): This is a 55-year-old female who presents with abdominal pain, found to have small-bowel obstruction. 1. Abdominal pain, small-bowel obstruction: Recent incarcerated umbilical hernia repair with mesh placement on 02/05/2020. Surgery admitted the patient. Currently, the patient is n.p.o., IV fluids, NG tube. Further management as per surgery. The patient also started on antibiotics as per surgery. 2. Urinary tract infection, on IV Cipro. We will follow the cultures. 3. Anxiety and depression: Continue Zoloft when able to take po. 4. Hypertension, could be situational from the anxiety and also from the pain. Will place on IV hydralazine p.r.n. and monitor. Pt was able to take amlodipine today. 5. History of Raynaud's disease. Amlodipine whenever the patient can take p.o. 6. Disposition, as per surgery. Admission and Anticipated Discharge Date Admission Date: March 21, 2020 Subjective Pt seen in follow up of elev. , admitted for SBO Currently laying in bed, in NAD She was able to get amlodipine this AM NG tube placed Hydralazine prn ordered Review of Systems Review of Systems: All systems reviewed & are unremarkable except as noted in HPI & below Constitutional: no fever and no chills Respiratory: no cough and no dyspnea Cardiovascular: no chest pain and no palpitations Gastrointestinal: + abdominal pain (much improved); no nausea and no vomiting Physical Exam Physical Exam: GENERAL: obese female, not in acute distress. HEENT: NC/AT, NG tube placed signif. drainage noted NECK: No neck masses seen. CARDIOVASCULAR: S1, S2 heard. Regular rate and rhythm. No murmur, no gallop. RESPIRATORY SYSTEM: Normal AP diameter. No accessory muscle use. No wheezing, no crackles. ABDOMEN: Soft, bowel sounds very sluggish, nontender. Obese. No distention. NEURO: alert and oriented and answering questions appropriately. Speech fluent. Moves extremities. EXTREMITIES: No edema, no erythema. Results & Data Results & Data ([facility] [place]) Vital Signs (Past 12 Hours) Vital Signs Temp Pulse Resp BP BP Pulse Ox 03/22/20 06:55 36.4 C L 62 18 188/102 H 97 03/22/20 06:20 61 184/95 H 03/21/20 22:38 36.4 C L 65 16 145/97 H 95 03/21/20 20:46 65 172/95 H Laboratory Results 03/22/20 03/22/20 03/21/20 Range/Units 05:13 05:13 16:13 WBC 8.84 (4.8-10.8) K/uL RBC 4.40 (4.2-5.4) M/uL Hgb 13.4 (12.0-16.0) g/dL Hct 40.0 (37-47) % MCV 90.9 (80-100) fL MCH 30.5 (25-34) pg MCHC 33.5 (32-36) g/dL RDW Std Deviation 45.8 (36.4-46.3) fL RDW Coeff of [place]ad[place] 13.7 (11.5-14.5) % Plt Count 266 (130-400) K/uL MPV 11.3 H (7.4-10.4) fL Immature Gran % (Auto) 0.1 % Neut % (Auto) 62.8 % Lymph % (Auto) 23.3 % [place] % (Auto) 10.1 % Eos % (Auto) 3.1 % Baso % (Auto) 0.6 % Neut # (Auto) 5.56 (1.4-6.5) K/uL Lymph # (Auto) 2.06 (1.2-3.4) K/uL [place] # (Auto) 0.89 H (0.11-0.59) K/uL Eos # (Auto) 0.27 (0-0.5) K/uL Baso # (Auto) 0.05 (0-0.2) K/uL Immature Gran # (Auto) 0.01 (0.00-0.02) K/uL Sodium 141 (136-145) mmol/L Potassium 3.6 (3.5-5.1) mmol/L Chloride 107 (98-107) mmol/L Carbon Dioxide 27 (21-32) mmol/L Anion Gap 7.0 (3-11) BUN 8 (7-18) mg/dl Creatinine 0.79 (0.6-1.2) mg/dl Est Cr Clr Drug Dosing 83.8 ml/min Est GFR ( Amer) 96.3 Est GFR (Non-Af Amer) 83.1 BUN/Creatinine Ratio 10.5 (10-20) Glucose 112 H (70-99) mg/dl Calcium 9.0 (8.5-10.1) mg/dl Total Bilirubin 0.6 (0.2-1) mg/dl AST 31 (15-37) U/L ALT 49 (12-78) U/L Alkaline Phosphatase 101 (45-117) U/L Total Protein 7.3 (6.4-8.2) gm/dl Albumin 3.4 (3.4-5.0) gm/dl Globulin 3.9 (2.5-4.0) gm/dl Albumin/Globulin Ratio 0.9 (0.9-2) Lipase (73-393) U/L Urine Color Urine Appearance (Clear) Urine pH (4.5-7.5) Ur Specific [place] (1.000-1.030) Urine Protein (Negative) Urine Glucose (UA) (Negative) Urine Ketones (Negative) Urine Blood (Negative) Urine Nitrite (Negative) Urine Bilirubin (Negative) Urine Urobilinogen (Negative) Ur Leukocyte Esterase (Negative) Urine WBC (Auto) (0-5) /hpf Urine RBC (Auto) (0-4) /hpf U Hyaline Cast (Auto) (0-5) /lpf U Epithel Cells (Auto) (0-5) /lpf Urine Bacteria (Auto) (Negative) COVID-19 Eval Order SARS-CoV-2, RNA, NAAT NEGATIVE (NEGATIVE) 03/21/20 03/21/20 03/21/20 Range/Units 16:13 12:30 12:30 WBC 11.16 H (4.8-10.8) K/uL RBC 4.52 (4.2-5.4) M/uL Hgb 13.9 (12.0-16.0) g/dL Hct 41.4 (37-47) % MCV 91.6 (80-100) fL MCH 30.8 (25-34) pg MCHC 33.6 (32-36) g/dL RDW Std Deviation 45.8 (36.4-46.3) fL RDW Coeff of Fadumo 13.7 (11.5-14.5) % Plt Count 263 (130-400) K/uL MPV 11.2 H (7.4-10.4) fL Immature Gran % (Auto) 0.2 % Neut % (Auto) 72.5 % Lymph % (Auto) 17.8 % [place] % (Auto) 6.8 % Eos % (Auto) 2.3 % Baso % (Auto) 0.4 % Neut # (Auto) 8.08 H (1.4-6.5) K/uL Lymph # (Auto) 1.99 (1.2-3.4) K/uL [place] # (Auto) 0.76 H (0.11-0.59) K/uL Eos # (Auto) 0.26 (0-0.5) K/uL Baso # (Auto) 0.05 (0-0.2) K/uL Immature Gran # (Auto) 0.02 (0.00-0.02) K/uL Sodium 141 (136-145) mmol/L Potassium 3.9 (3.5-5.1) mmol/L Chloride 107 (98-107) mmol/L Carbon Dioxide 25 (21-32) mmol/L Anion Gap 9.0 (3-11) BUN 12 (7-18) mg/dl Creatinine 0.78 (0.6-1.2) mg/dl Est Cr Clr Drug Dosing 85.7 ml/min Est GFR ( Amer) 97.8 Est GFR (Non-Af Amer) 84.4 BUN/Creatinine Ratio 14.9 (10-20) Glucose 93 (70-99) mg/dl Calcium 9.5 (8.5-10.1) mg/dl Total Bilirubin 0.6 (0.2-1) mg/dl AST 49 H (15-37) U/L ALT 64 (12-78) U/L Alkaline Phosphatase 114 (45-117) U/L Total Protein 8.2 (6.4-8.2) gm/dl Albumin 3.7 (3.4-5.0) gm/dl Globulin 4.5 H (2.5-4.0) gm/dl Albumin/Globulin Ratio 0.8 L (0.9-2) Lipase 182 (73-393) U/L Urine Color Urine Appearance (Clear) Urine pH (4.5-7.5) Ur Specific [place] (1.000-1.030) Urine Protein (Negative) Urine Glucose (UA) (Negative) Urine Ketones (Negative) Urine Blood (Negative) Urine Nitrite (Negative) Urine Bilirubin (Negative) Urine Urobilinogen (Negative) Ur Leukocyte Esterase (Negative) Urine WBC (Auto) (0-5) /hpf Urine RBC (Auto) (0-4) /hpf U Hyaline Cast (Auto) (0-5) /lpf U Epithel Cells (Auto) (0-5) /lpf Urine Bacteria (Auto) (Negative) COVID-19 Eval Order Covid19 IDNow [facility] SARS-CoV-2, RNA, NAAT (NEGATIVE) 03/21/20 Range/Units 12:25 WBC (4.8-10.8) K/uL RBC (4.2-5.4) M/uL Hgb (12.0-16.0) g/dL Hct (37-47) % MCV (80-100) fL MCH (25-34) pg MCHC (32-36) g/dL RDW Std Deviation (36.4-46.3) fL RDW Coeff of [place]adum[place] (11.5-14.5) % Plt Count (130-400) K/uL MPV (7.4-10.4) fL Immature Gran % (Auto) % Neut % (Auto) % Lymph % (Auto) % [place] % (Auto) % Eos % (Auto) % Baso % (Auto) % Neut # (Auto) (1.4-6.5) K/uL Lymph # (Auto) (1.2-3.4) K/uL [place] # (Auto) (0.11-0.59) K/uL Eos # (Auto) (0-0.5) K/uL Baso # (Auto) (0-0.2) K/uL Immature Gran # (Auto) (0.00-0.02) K/uL Sodium (136-145) mmol/L Potassium (3.5-5.1) mmol/L Chloride (98-107) mmol/L Carbon Dioxide (21-32) mmol/L Anion Gap (3-11) BUN (7-18) mg/dl Creatinine (0.6-1.2) mg/dl Est Cr Clr Drug Dosing ml/min Est GFR ( Amer) Est GFR (Non-Af Amer) BUN/Creatinine Ratio (10-20) Glucose (70-99) mg/dl Calcium (8.5-10.1) mg/dl Total Bilirubin (0.2-1) mg/dl AST (15-37) U/L ALT (12-78) U/L Alkaline Phosphatase (45-117) U/L Total Protein (6.4-8.2) gm/dl Albumin (3.4-5.0) gm/dl Globulin (2.5-4.0) gm/dl Albumin/Globulin Ratio (0.9-2) Lipase (73-393) U/L Urine Color Yellow Urine Appearance Clear (Clear) Urine pH 6.5 (4.5-7.5) Ur Specific [place] 1.018 (1.000-1.030) Urine Protein Negative (Negative) Urine Glucose (UA) Negative (Negative) Urine Ketones Negative (Negative) Urine Blood Trace H (Negative) Urine Nitrite Negative (Negative) Urine Bilirubin Negative (Negative) Urine Urobilinogen Negative (Negative) Ur Leukocyte Esterase 3+ H (Negative) Urine WBC (Auto) >30 H (0-5) /hpf Urine RBC (Auto) 0-4 (0-4) /hpf U Hyaline Cast (Auto) 5-10 H (0-5) /lpf U Epithel Cells (Auto) >30 H (0-5) /lpf Urine Bacteria (Auto) 1+ H (Negative) COVID-19 Eval Order SARS-CoV-2, RNA, NAAT (NEGATIVE) Medications Administered Current Inpatient Medications Amlodipine Besylate (Amlodipine Besylate 5 Mg Tab) 5 mg PO DAILY [facility] Stop: 04/21/20 08:59 Last Admin: 03/22/20 07:46 Dose: 5 mg Documented by: Atorvastatin Calcium (Atorvastatin 40 Mg Tab) 80 mg PO QAM JAISON Stop: 04/21/20 08:59 Last Admin: 03/22/20 08:37 Dose: Not Given Documented by: Hydralazine HCl (Hydralazine Hcl 20 Mg/Ml Vial) 5 mg IV Q6H PRN PRN Reason: Hypertension Stop: 04/20/20 21:29 Last Admin: 03/22/20 06:20 Dose: 5 mg Documented by: Hydromorphone HCl (Hydromorphone Inj 1 Mg/Ml Syringe) 1 mg IV Q3H PRN PRN Reason: Pain (6-10) Stop: 04/04/20 15:34 Potassium Chloride/Dextrose/Sod Cl (D5w And 1/2nss + 20meq Kcl) 20 meq in 1,000 mls @ 100 mls/hr IV .Q10H JAISON Stop: 04/20/20 18:59 Last Admin: 03/22/20 07:48 Dose: 100 mls/hr Documented by: Ciprofloxacin (Cipro / D5w) 400 mg in 200 mls @ 100 mls/hr IV Q12H JAISON; Protocol Stop: 03/31/20 05:59 Last Admin: 03/22/20 05:47 Dose: 100 mls/hr Documented by: Metronidazole (Flagyl) 500 mg in 100 mls @ 100 mls/hr IV Q8H JAISON; Protocol Stop: 03/31/20 01:59 Last Infusion: 03/22/20 02:38 Dose: Infused Documented by: Pantoprazole Sodium 40 mg/ (Syringe) 10 mls @ 5 mls/min IV BID JAISON Stop: 04/20/20 20:59 Last Admin: 03/22/20 08:37 Dose: 5 mls/min Documented by: Naproxen (Naproxen 250 Mg Tab) 500 mg PO DAILY PRN PRN Reason: Pain Stop: 04/20/20 18:35 Oxycodone/Acetaminophen (Oxycodone/Acetaminophen 5mg/325mg Tab) 1 tab PO Q4H PRN PRN Reason: Pain Stop: 04/04/20 15:34 Sertraline HCl (Sertraline Hcl 100 Mg Tablet) 200 mg PO QAM [facility] Stop: 04/21/20 08:59 Last Admin: 03/22/20 07:47 Dose: 200 mg Documented by:
[2020-03-22] MEDS ORDERED: ACETAMINOPHEN 1000 MG/100 ML IV IV ONE (10:03)
[2020-03-22] MEDS: ACETAMINOPHEN 1000 MG/100 ML IV IV SCH (18:09)
[2020-03-23] MEDS: metroNIDAZOLE 500 MG/100 ML BAG IV SCH ×3 (01:36→20:44)
[2020-03-23] MEDS: D5W AND 1/2NSS + 20MEQ KCL 20 MEQ/1,000 ML BAG IV SCH ×2 (02:48→22:11)
[2020-03-23] MEDS: ACETAMINOPHEN 1000 MG/100 ML IV IV SCH (02:48)
[2020-03-23] MEDS: CIPROFLOXACIN / D5W 400 MG/200 ML BAG IV SCH ×2 (05:22→17:46)
[2020-03-23 06:11] LABS: Hematocrit (blood only) 40.4 % (37-47); Hemoglobin 13.6 g/dL (12.0-16.0); Mean Corpuscular Hemoglobin 30.6 pg (25-34); Mean Corpuscular Hgb Conc 33.7 g/dL (32-36); Mean Corpuscular Volume 90.8 fL (80-100); Platelet Count 294 K/uL (130-400); RDW Coefficient of Variation 13.9 % (11.5-14.5); RDW Standard Deviation 46.3 fL (36.4-46.3); Red Blood Count 4.45 M/uL (4.2-5.4); White Blood Count 8.47 K/uL (4.8-10.8)
[2020-03-23 06:44] LABS: BUN Creatinine Ratio 7.5 (10-20); Calcium 9.4 mg/dl (8.5-10.1); Est GFR (African American) 99.3; Est GFR (Non-African American) 85.7; Phosphorus 3.5 mg/dl (2.5-4.9); Potassium 3.5 mmol/L (3.5-5.1)
[2020-03-23] MEDS: SERTRALINE HCL 100 MG TABLET PO SCH (09:03)
[2020-03-23] MEDS: amLODIPine BESYLATE 5 MG TAB PO SCH (09:03)
[2020-03-23] MEDS: PANTOprazole 40 MG in SYRINGE 0 ML IV SCH (09:04)
[2020-03-23] MEDS: ATORVASTATIN 40 MG TAB PO SCH (09:11)
[2020-03-23] MEDS ORDERED: ACETAMINOPHEN 325 MG TAB PO PRN (09:38)
--- NOTE | 2020-03-23 09:46 | Hospitalist Progress Note ---
Date of Service March 23, 2020 Assessment & Plan (1) Hypertension: (2) Small bowel obstruction: (3) UTI (urinary tract infection): This is a 55-year-old female who presents with abdominal pain, found to have small-bowel obstruction. 1. Abdominal pain, small-bowel obstruction: Recent incarcerated umbilical hernia repair with mesh placement on 02/05/2020. Surgery admitted the patient. Initially n.p.o., IV fluids, NG tube. Now NGT removed and pt started on clear liquid diet Further management as per surgery. The patient also started on antibiotics as per surgery. 2. Urinary tract infection, on IV Cipro. We will follow the cultures. 3. Anxiety and depression: Continue Zoloft when able to take po. 4. Hypertension, could be situational from the anxiety and also from the pain. V hydralazine p.r.n. and monitor. Pt now able to take home amlodipine 5. History of Raynaud's disease. Cont. home Amlodipine Disposition, as per surgery. Admission and Anticipated Discharge Date Admission Date: March 21, 2020 Subjective Pt seen in follow up of elev. BP, admitted for SBO Currently laying in bed, in NAD NGT removed and appears much more comfortable today Switched to clear liquid diet Will replete K, to keep K>4 Cont. home amlodipine Hydralazine prn ordered Review of Systems Review of Systems: All systems reviewed & are unremarkable except as noted in HPI & below Constitutional: no fever and no chills Respiratory: no cough and no dyspnea Cardiovascular: no chest pain and no palpitations Gastrointestinal: + abdominal pain (much improved); no nausea and no vomiting Physical Exam Physical Exam: GENERAL: obese female, not in acute distress. HEENT: NC/AT, NG tube placed signif. drainage noted NECK: No neck masses seen. CARDIOVASCULAR: S1, S2 heard. Regular rate and rhythm. No murmur, no gallop. RESPIRATORY SYSTEM: Normal AP diameter. No accessory muscle use. No wheezing, no crackles. ABDOMEN: Soft, bowel sounds very sluggish, nontender. Obese. No distention. NEURO: alert and oriented and answering questions appropriately. Speech fluent. Moves extremities. EXTREMITIES: No edema, no erythema. Results & Data Results & Data ([facility]) Vital Signs (Past 12 Hours) Vital Signs Temp Pulse Resp BP BP Pulse Ox 03/23/20 07:14 36.8 C 72 16 154/85 H 93 03/23/20 03:00 159/83 H 03/22/20 23:17 36.5 C 64 16 173/87 H 96 Laboratory Results 03/23/20 03/23/20 Range/Units 05:35 05:35 WBC 8.47 (4.8-10.8) K/uL RBC 4.45 (4.2-5.4) M/uL Hgb 13.6 (12.0-16.0) g/dL Hct 40.4 (37-47) % MCV 90.8 (80-100) fL MCH 30.6 (25-34) pg MCHC 33.7 (32-36) g/dL RDW Std Deviation 46.3 (36.4-46.3) fL RDW Coeff of Fadumo 13.9 (11.5-14.5) % Plt Count 294 (130-400) K/uL MPV 11.0 H (7.4-10.4) fL Sodium 140 (136-145) mmol/L Potassium 3.5 (3.5-5.1) mmol/L Chloride 108 H (98-107) mmol/L Carbon Dioxide 26 (21-32) mmol/L Anion Gap 6.0 (3-11) BUN 6 L (7-18) mg/dl Creatinine 0.77 (0.6-1.2) mg/dl Est Cr Clr Drug Dosing 86.0 ml/min Est GFR ( Amer) 99.3 Est GFR (Non-Af Amer) 85.7 BUN/Creatinine Ratio 7.5 L (10-20) Glucose 127 H (70-99) mg/dl Calcium 9.4 (8.5-10.1) mg/dl Phosphorus 3.5 (2.5-4.9) mg/dl Magnesium 2.0 (1.8-2.4) mg/dl Medications Administered Current Inpatient Medications Acetaminophen (Acetaminophen 325 Mg Tab) 650 mg PO Q4H PRN PRN Reason: pain Stop: 04/22/20 09:37 Amlodipine Besylate (Amlodipine Besylate 5 Mg Tab) 5 mg PO DAILY JAISON Stop: 04/21/20 08:59 Last Admin: 03/23/20 09:03 Dose: 5 mg Documented by: Atorvastatin Calcium (Atorvastatin 40 Mg Tab) 80 mg PO QAM JAISON Stop: 04/21/20 08:59 Last Admin: 03/23/20 09:11 Dose: Not Given Documented by: Hydralazine HCl (Hydralazine Hcl 20 Mg/Ml Vial) 5 mg IV Q6H PRN PRN Reason: Hypertension Stop: 04/20/20 21:29 Last Admin: 03/22/20 20:43 Dose: 5 mg Documented by: Hydromorphone HCl (Hydromorphone Inj 1 Mg/Ml Syringe) 1 mg IV Q3H PRN PRN Reason: Pain (6-10) Stop: 04/04/20 15:34 Potassium Chloride/Dextrose/Sod Cl (D5w And 1/2nss + 20meq Kcl) 20 meq in 1,000 mls @ 100 mls/hr IV .Q10H JAISON Stop: 04/20/20 18:59 Last Infusion: 03/23/20 09:04 Dose: 0 mls/hr Documented by: Ciprofloxacin (Cipro / D5w) 400 mg in 200 mls @ 100 mls/hr IV Q12H JAISON; Protocol Stop: 03/31/20 05:59 Last Infusion: 03/23/20 07:31 Dose: Infused Documented by: Metronidazole (Flagyl) 500 mg in 100 mls @ 100 mls/hr IV Q8H JAISON; Protocol Stop: 03/31/20 01:59 Last Admin: 03/23/20 09:04 Dose: 100 mls/hr Documented by: Naproxen (Naproxen 250 Mg Tab) 500 mg PO DAILY PRN PRN Reason: Pain Stop: 04/20/20 18:35 Oxycodone/Acetaminophen (Oxycodone/Acetaminophen 5mg/325mg Tab) 1 tab PO Q4H PRN PRN Reason: Pain Stop: 04/04/20 15:34 Sertraline HCl (Sertraline Hcl 100 Mg Tablet) 200 mg PO QAM JAISON Stop: 04/21/20 08:59 Last Admin: 03/23/20 09:03 Dose: 200 mg Documented by:
--- NOTE | 2020-03-23 09:47 | Surgery Progress Note ---
Date of Service March 23, 2020 Assessment & Plan (1) Small bowel obstruction: Likely secondary to intra-abdominal adhesions in setting of recent umbilical hernia repair with mesh Resolving Plan: Discontinue NGT start clear liquids slowly ambulate hallway discontinue IV Tylenol scheduled as pt is not having pain PO Tylenol prn pain continue cipro/flagyl for now (2) UTI (urinary tract infection): urine culture pending, await results continue IV Cipro for now Discussed with Dr. tierney who agrees with above. Admission and Anticipated Discharge Date Admission Date: March 21, 2020 Subjective feeling better today no abdominal pain not passing gas today, liquid bowel movement yesterday no abdominal bloating no nausea or vomiting urinating without difficulty has not ambulated hallway Physical Exam Constitutional: WD/WN, vitals as above Respiratory: normal respiratory effort; no respiratory distress and no labored breathing Gastrointestinal (Abdomen): Inspection/Auscultation: abdomen normal to inspection, + abdominal surgical scar (infraumbilical transverse scar) and + hypoactive bowel sounds; abdomen not distended Percussion/Palpation: abdomen soft; abdomen nontender, no guarding and abdomen not rigid Skin: no rashes, warm and dry Psychiatric: A+Ox3, euthymic affect Results & Data ([facility]) Vital Signs (Past 12 Hours) Vital Signs Temp Pulse Resp BP BP Pulse Ox 03/23/20 07:14 36.8 C 72 16 154/85 H 93 03/23/20 03:00 159/83 H 03/22/20 23:17 36.5 C 64 16 173/87 H 96 Laboratory Results 03/23/20 03/23/20 Range/Units 05:35 05:35 WBC 8.47 (4.8-10.8) K/uL RBC 4.45 (4.2-5.4) M/uL Hgb 13.6 (12.0-16.0) g/dL Hct 40.4 (37-47) % MCV 90.8 (80-100) fL MCH 30.6 (25-34) pg MCHC 33.7 (32-36) g/dL RDW Std Deviation 46.3 (36.4-46.3) fL RDW Coeff of Fadumo 13.9 (11.5-14.5) % Plt Count 294 (130-400) K/uL MPV 11.0 H (7.4-10.4) fL Sodium 140 (136-145) mmol/L Potassium 3.5 (3.5-5.1) mmol/L Chloride 108 H (98-107) mmol/L Carbon Dioxide 26 (21-32) mmol/L Anion Gap 6.0 (3-11) BUN 6 L (7-18) mg/dl Creatinine 0.77 (0.6-1.2) mg/dl Est Cr Clr Drug Dosing 86.0 ml/min Est GFR ( Amer) 99.3 Est GFR (Non-Af Amer) 85.7 BUN/Creatinine Ratio 7.5 L (10-20) Glucose 127 H (70-99) mg/dl Calcium 9.4 (8.5-10.1) mg/dl Phosphorus 3.5 (2.5-4.9) mg/dl Magnesium 2.0 (1.8-2.4) mg/dl
[2020-03-23] MEDS: POTASSIUM CHLORIDE / WTR 10 MEQ/100 ML PLCT IV SCH ×3 (10:10→16:34)
[2020-03-23] MEDS ORDERED: POTASSIUM CHLORIDE CRTAB 20 MEQ TABCR PO ONE (12:00)
[2020-03-23] MEDS: hydrALAZINE HCL 20 MG/ML VIAL IV PRN (15:50)
[2020-03-24] MEDS: D5W AND 1/2NSS + 20MEQ KCL 20 MEQ/1,000 ML BAG IV SCH (00:45)
[2020-03-24] MEDS: metroNIDAZOLE 500 MG/100 ML BAG IV SCH ×2 (02:43→10:39)
[2020-03-24] MEDS: CIPROFLOXACIN / D5W 400 MG/200 ML BAG IV SCH (05:31)
[2020-03-24 05:58] LABS: Hematocrit (blood only) 40.2 % (37-47); Hemoglobin 13.2 g/dL (12.0-16.0); Mean Corpuscular Hemoglobin 30.1 pg (25-34); Mean Corpuscular Hgb Conc 32.8 g/dL (32-36); Mean Corpuscular Volume 91.8 fL (80-100); Mean Platelet Volume 10.9 fL (7.4-10.4); Platelet Count 256 K/uL (130-400); RDW Coefficient of Variation 14.1 % (11.5-14.5); RDW Standard Deviation 47.7 fL (36.4-46.3); Red Blood Count 4.38 M/uL (4.2-5.4); White Blood Count 7.73 K/uL (4.8-10.8)
[2020-03-24 06:25] LABS: BUN Creatinine Ratio 8.8 (10-20); Calcium 8.9 mg/dl (8.5-10.1); Creatinine Clr Calc Pharmacy 88.3 ml/min; Est GFR (African American) 102.6; Est GFR (Non-African American) 88.5; Potassium 3.9 mmol/L (3.5-5.1)
[2020-03-24 06:31] LABS: Phosphorus 4.1 mg/dl (2.5-4.9)
[2020-03-24] MEDS: ATORVASTATIN 40 MG TAB PO SCH (09:27)
[2020-03-24] MEDS: amLODIPine BESYLATE 5 MG TAB PO SCH (09:28)
[2020-03-24] MEDS: SERTRALINE HCL 100 MG TABLET PO SCH (09:28)
--- NOTE | 2020-03-24 09:29 | Hospitalist Progress Note ---
Date of Service March 24, 2020 Assessment & Plan (1) Hypertension: (2) Small bowel obstruction: (3) UTI (urinary tract infection): This is a 55-year-old female who presents with abdominal pain, found to have small-bowel obstruction. 1. Abdominal pain, small-bowel obstruction: Recent incarcerated umbilical hernia repair with mesh placement on 02/05/2020. Surgery admitted the patient. Initially n.p.o., IV fluids, NG tube. Now NGT removed and pt started on clear liquid diet tolerating full liquid diet, large BM last evening and passing flatulence this morning will Stop IVF, await surgery input to advance diet continue IV antibiotics per surgery 2. Urinary tract infection, on IV Cipro. - urine culture negative for infection - okay to d/c antibiotic from UTI perspective 3. Anxiety and depression: Continue Zoloft when able to take po. 4. Hypertension, could be situational from the anxiety. Currently no pain BP 128/73 during my eval prn hydralazine p.r.n. and monitor. continue amlodipine 5mg daily - on for raynauds 5. History of Raynaud's disease. Cont. home Amlodipine Disposition, as per surgery. Pt was seen and examined in collaboration with Dr. Ozuna, please see addendum Thank you for this consultation. We will follow the patient with you during their hospital stay. You can reach a member of the [facility] Hospitalist Team 04/09 via pager @ [phone]. Admission and Anticipated Discharge Date Admission Date: March 21, 2020 Supervising Physician Co-Signing Physician Notes Pt was seen and examined. Agreed with Tita TIMMONS exam,assessment and plan. Pt was seen for follow up of SBO. Pt si doing much better. She tolerated full liquid diet, and had a large BM last evening. Currently she is not having any abdominal pain. S/P incarcerated umbilical hernia repair with mesh placement on 02/05/2020. Continue conservative management as per surgery. Will advance diet. Will stop IV abx. Continue monitor closely. MD Laith Subjective Patient seen and examined in room 308. Follow-up small bowel obstruction and hypertension. She feels much improved this morning. Had large BM last night and is passing flatulence this morning. Has been tolerating full liquid diet and states, "I am hungry." She is requesting advance diet. She denies any fever, chills, sweats, lightheadedness, dizziness, chest pain, shortness of breath, cough, nausea, vomiting, abdominal pain. She does have a mild headache this morning. Denies visual changes. We discussed her blood pressure. I repeated and BP was 128/63. Typically she takes amlodipine but for Raynaud's. In clinic blood pressure is usually 130s to 140 systolically. No prior history of hypertension. States that she does have a lot of stress going on right now as her 18-year-old son is staying at home and helping care for his 95-year-old grandfather while she is in hospital. Son is also undergoing surgery today and is out of town for 2 weeks. Review of Systems Review of Systems: All systems reviewed & are unremarkable except as noted in HPI & below Physical Exam Physical Exam: Gen: WD/WN, Female,NAD, A&O x3 HEENT: Normocephalic, atraumatic, conjunctivae moist, sclerae anicteric, mucous membranes moist. Lung: Clear to Auscultation bilaterally, no wheezes/rales/rhonchi Heart: Regular rate, regular rhythm, normal s1/s2, 1/6 MARÍA noted lusb, no rubs, or gallops Abdomen: Soft, NT, ND +BS x 4 Extremities: No edema Skin: Warm, no rash, negative turgor. Results & Data Results & Data ([facility]) Vital Signs (Past 12 Hours) Vital Signs Temp Pulse Resp BP BP Pulse Ox 03/24/20 07:51 36.5 C 58 L 17 160/93 H 95 03/23/20 22:47 36.7 C 68 14 137/78 94 Laboratory Results Short CBC 03/24/20 Range/Units 05:33 WBC 7.73 (4.8-10.8) K/uL Hgb 13.2 (12.0-16.0) g/dL Hct 40.2 (37-47) % Plt Count 256 (130-400) K/uL BMP 03/24/20 05:33 Sodium 143 Potassium 3.9 Chloride 110 H Carbon Dioxide 27 BUN 7 Creatinine 0.75 Glucose 121 H Calcium 8.9 Medications Administered Acetaminophen (Acetaminophen 325 Mg Tab) 650 mg PO Q4H PRN PRN Reason: mild pain (1,2,3) Stop: 04/22/20 09:37 Last Admin: 03/24/20 09:28 Dose: 650 mg Documented by: [id number] Amlodipine Besylate (Amlodipine Besylate 5 Mg Tab) 5 mg PO DAILY [facility] Stop: 04/21/20 08:59 Last Admin: 03/24/20 09:28 Dose: 5 mg Documented by: [id number] Admin: 03/23/20 09:03 Dose: 5 mg Documented by: [id number] Admin: 03/22/20 07:46 Dose: 5 mg Documented by: [id number] Atorvastatin Calcium (Atorvastatin 40 Mg Tab) 80 mg PO QAM [facility] Stop: 04/21/20 08:59 Last Admin: 03/24/20 09:27 Dose: 80 mg Documented by: [id number] Admin: 03/23/20 09:11 Dose: Not Given Documented by: [id number] Admin: 03/22/20 08:37 Dose: Not Given Documented by: [id number] Hydralazine HCl (Hydralazine Hcl 20 Mg/Ml Vial) 5 mg IV Q6H PRN PRN Reason: Hypertension Stop: 04/20/20 21:29 Last Admin: 03/23/20 15:50 Dose: 5 mg Documented by: [id number] Admin: 03/22/20 20:43 Dose: 5 mg Documented by: [id number] Admin: 03/22/20 06:20 Dose: 5 mg Documented by: [id number] Admin: 03/21/20 21:41 Dose: 5 mg Documented by: [id number] Ciprofloxacin (Cipro / D5w) 400 mg in 200 mls @ 100 mls/hr IV Q12H [facility]; Protocol Stop: 03/31/20 05:59 Last Infusion: 03/24/20 07:32 Dose: 0 mls/hr Documented by: [id number] Admin: 03/24/20 05:31 Dose: 100 mls/hr Documented by: [id number] Infusion: 03/23/20 19:50 Dose: 0 mls/hr Documented by: [id number] Admin: 03/23/20 17:46 Dose: 100 mls/hr Documented by: [id number] Infusion: 03/23/20 07:31 Dose: 0 mls/hr Documented by: [id number] Admin: 03/23/20 05:22 Dose: 100 mls/hr Documented by: [id number] Infusion: 03/22/20 20:38 Dose: 0 mls/hr Documented by: [id number] Admin: 03/22/20 18:29 Dose: 100 mls/hr Documented by: [id number] Infusion: 03/22/20 08:45 Dose: 0 mls/hr Documented by: [id number] Admin: 03/22/20 05:47 Dose: 100 mls/hr Documented by: [id number] Metronidazole (Flagyl) 500 mg in 100 mls @ 100 mls/hr IV Q8H JAISON; Protocol Stop: 03/31/20 01:59 Last Infusion: 03/24/20 03:45 Dose: 0 mls/hr Documented by: [id number] Admin: 03/24/20 02:43 Dose: 100 mls/hr Documented by: [id number] Infusion: 03/23/20 22:11 Dose: 0 mls/hr Documented by: [id number] Admin: 03/23/20 20:44 Dose: 100 mls/hr Documented by: [id number] Infusion: 03/23/20 10:04 Dose: 0 mls/hr Documented by: [id number] Admin: 03/23/20 09:04 Dose: 100 mls/hr Documented by: [id number] Infusion: 03/23/20 02:36 Dose: 0 mls/hr Documented by: [id number] Admin: 03/23/20 01:36 Dose: 100 mls/hr Documented by: [id number] Infusion: 03/22/20 20:38 Dose: 0 mls/hr Documented by: [id number] Admin: 03/22/20 18:32 Dose: 100 mls/hr Documented by: [id number] Infusion: 03/22/20 11:14 Dose: 0 mls/hr Documented by: [id number] Admin: 03/22/20 10:11 Dose: 100 mls/hr Documented by: [id number] Infusion: 03/22/20 02:38 Dose: 0 mls/hr Documented by: [id number] Admin: 03/22/20 01:15 Dose: 100 mls/hr Documented by: [id number] Sertraline HCl (S[facility]ine Hcl 100 Mg Tablet) [facility] [place] Stop: 04/21/20 08:59 Last Admin: 03/24/20 09:28 Dose: 200 mg Documented by: [id number] Admin: 03/23/20 09:03 Dose: 200 mg Documented by: [id number] Admin: 03/22/20 07:47 Dose: 200 mg Documented by: [id number] Discontinued Medications Acetaminophen (Acetaminophen 1000 Mg/100 Ml Iv) 1,000 mg IV ONE ONE Stop: 03/21/20 12:16 Last Admin: 03/21/20 13:38 Dose: 1,000 mg Documented by: [id number] Acetaminophen (Acetaminophen 1000 Mg/100 Ml Iv) 1,000 mg IV ONE ONE Stop: 03/22/20 10:04 Last Admin: 03/22/20 11:13 Dose: 1,000 mg Documented by: [id number] Acetaminophen (Acetaminophen 1000 Mg/100 Ml Iv) 1,000 mg IV Q8H JAISON Stop: 03/25/20 17:59 Last Admin: 03/23/20 02:48 Dose: 1,000 mg Documented by: [id number] Admin: 03/22/20 18:09 Dose: 1,000 mg Documented by: [id number] Amlodipine Besylate (Amlodipine Besylate 5 Mg Tab) 2.5 mg PO BID JAISON Stop: 04/20/20 20:59 Last Admin: 03/21/20 21:41 Dose: Not Given Documented by: [id number] Bisacodyl (Bisacodyl 10 Mg Supp) 10 mg IA NOW STA Stop: 03/22/20 08:35 Last Admin: 03/22/20 10:11 Dose: Not Given Documented by: [id number] Sodium Chloride (Nss 1000ml) 1,000 mls @ 999 mls/hr IV .Q1H1M ONE Stop: 03/21/20 13:13 Last Infusion: 03/21/20 13:41 Dose: 0 mls/hr Documented by: [id number] Admin: 03/21/20 12:40 Dose: 999 mls/hr Documented by: [id number] Potassium Chloride/Dextrose/Sod Cl (D5w And 1/2nss + 20meq Kcl) 20 meq in 1,000 mls @ 100 mls/hr IV .Q10H JAISON Stop: 04/20/20 18:59 Last Admin: 03/24/20 00:45 Dose: 100 mls/hr Documented by: [id number] Infusion: 03/24/20 00:45 Dose: 100 mls/hr Documented by: [id number] Admin: 03/23/20 22:11 Dose: 100 mls/hr Documented by: [id number] Infusion: 03/23/20 22:11 Dose: 0 mls/hr Documented by: [id number] Infusion: 03/23/20 10:10 Dose: 0 mls/hr Documented by: [id number] Infusion: 03/23/20 10:04 Dose: 100 mls/hr Documented by: [id number] Infusion: 03/23/20 09:04 Dose: 0 mls/hr Documented by: [id number] Infusion: 03/23/20 07:25 Dose: 100 mls/hr Documented by: [id number] Infusion: 03/23/20 05:24 Dose: 0 mls/hr Documented by: [id number] Admin: 03/23/20 02:48 Dose: 100 mls/hr Documented by: [id number] Infusion: 03/23/20 02:48 Dose: 100 mls/hr Documented by: [id number] Infusion: 03/23/20 02:36 Dose: 100 mls/hr Documented by: [id number] Infusion: 03/23/20 01:38 Dose: 0 mls/hr Documented by: [id number] Admin: 03/22/20 23:10 Dose: Not Given Documented by: [id number] Admin: 03/22/20 18:31 Dose: 100 mls/hr Documented by: [id number] Infusion: 03/22/20 18:31 Dose: 100 mls/hr Documented by: [id number] Infusion: 03/22/20 11:14 Dose: 100 mls/hr Documented by: [id number] Infusion: 03/22/20 10:11 Dose: 0 mls/hr Documented by: [id number] Admin: 03/22/20 07:48 Dose: 100 mls/hr Documented by: [id number] Infusion: 03/22/20 07:00 Dose: 100 mls/hr Documented by: [id number] Admin: 03/21/20 21:00 Dose: 100 mls/hr Documented by: [id number] Pantoprazole Sodium 40 mg/ (Syringe) 10 mls @ 5 mls/min IV BID JAISON Stop: 04/20/20 20:59 Last Admin: 03/23/20 09:04 Dose: 5 mls/min Documented by: [id number] Admin: 03/22/20 20:08 Dose: 5 mls/min Documented by: [id number] Admin: 03/22/20 08:37 Dose: 5 mls/min Documented by: [id number] Admin: 03/21/20 21:00 Dose: 5 mls/min Documented by: [id number] Ciprofloxacin (Cipro / D5w) 400 mg in 200 mls @ 100 mls/hr IV NOW ONE Stop: 03/21/20 18:29 Last Infusion: 03/21/20 20:41 Dose: 0 mls/hr Documented by: [id number] Admin: 03/21/20 18:39 Dose: 100 mls/hr Documented by: [id number] Metronidazole (Flagyl) 500 mg in 100 mls @ 100 mls/hr IV NOW ONE Stop: 03/21/20 17:29 Last Infusion: 03/21/20 18:39 Dose: 0 mls/hr Documented by: [id number] Admin: 03/21/20 17:22 Dose: 100 mls/hr Documented by: [id number] Potassium Chloride (K Bright / Wtr) 10 meq in 100 mls @ 100 mls/hr IV Q1H JAISON Stop: 03/23/20 12:59 Last Infusion: 03/23/20 17:35 Dose: 0 mls/hr Documented by: [id number] Admin: 03/23/20 16:34 Dose: 100 mls/hr Documented by: [id number] Infusion: 03/23/20 14:40 Dose: 0 mls/hr Documented by: [id number] Admin: 03/23/20 13:40 Dose: 100 mls/hr Documented by: [id number] Infusion: 03/23/20 13:10 Dose: 0 mls/hr Documented by: [id number] Infusion: 03/23/20 12:10 Dose: 100 mls/hr Documented by: [id number] Infusion: 03/23/20 11:00 Dose: 0 mls/hr Documented by: [id number] Admin: 03/23/20 10:10 Dose: 100 mls/hr Documented by: [id number] Ioversol (Ioversol 100ml) 93 ml IV ONCE ONE Stop: 03/21/20 13:23 Last Admin: 03/21/20 13:22 Dose: 93 ml Documented by: [id number] Potassium Chloride (Potassium Chloride Crtab 20 Meq Tabcr) 20 meq PO NOW ONE Stop: 03/23/20 12:01 Last Admin: 03/23/20 13:40 Dose: 20 meq Documented by: [id number]
[2020-03-24] MEDS ORDERED: POTASSIUM CHLORIDE CRTAB 20 MEQ TABCR PO ONE (09:30)
--- NOTE | 2020-03-24 11:23 | Surgery Progress Note ---
Date of Service F/U SBO, doing fine, passed BM, no abdominal pain tolerated diet no nausea, no vomiting, March 24, 2020 Assessment & Plan (1) Small bowel obstruction: Likely secondary to intra-abdominal adhesions in setting of recent umbilical hernia repair with mesh Resolving Plan: Discontinue NGT start clear liquids slowly ambulate hallway discontinue IV Tylenol scheduled as pt is not having pain PO Tylenol prn pain continue cipro/flagyl for now 03/24/2020 11:22AM SBO resolved pt wants go home today, the care instruction was given, F/U me 2 weeks, (2) UTI (urinary tract infection): urine culture pending, await results continue IV Cipro for now Discussed with Dr. tierney who agrees with above. Admission and Anticipated Discharge Date Admission Date: March 21, 2020 Subjective Patient seen and examined in room 308. Follow-up small bowel obstruction and hypertension. She feels much improved this morning. Had large BM last night and is passing flatulence this morning. Has been tolerating full liquid diet and states, "I am hungry." She is requesting advance diet. She denies any fever, chills, sweats, lightheadedness, dizziness, chest pain, shortness of breath, cough, nausea, vomiting, abdominal pain. She does have a mild headache this morning. Denies visual changes. We discussed her blood pressure. I repeated and BP was 128/63. Typically she takes amlodipine but for Raynaud's. In clinic blood pressure is usually 130s to 140 systolically. No prior history of hypertension. States that she does have a lot of stress going on right now as her 18-year-old son is staying at home and helping care for his 95-year-old grandfather while she is in hospital. Son is also undergoing surgery today and is out of town for 2 weeks. Review of Systems Constitutional: as per Subjective / HPI Eyes: as per Subjective / HPI Ear, Nose, Mouth, Throat: as per Subjective / HPI Respiratory: as per Subjective / HPI Cardiovascular: as per Subjective / HPI Gastrointestinal: as per Subjective / HPI open repair incarcerated umbilical hernia with mesh 01/2020 Genitourinary: as per Subjective / HPI UTI Musculoskeletal: as per Subjective / HPI Integumentary: as per Subjective / HPI Neurologic: as per Subjective / HPI Psychiatric: as per Subjective / HPI Endocrine: as per Subjective / HPI Hematologic / Lymphatic: as per Subjective / HPI Allergy / Immunological: as per Subjective / HPI Physical Exam Constitutional: WD/WN, vitals as above well developed and well nourished Eyes: PERRL, conjunctivae normal, anicteric sclerae ENMT: external ear and nose normal, oropharynx normal Neck: trachea midline, no thyromegaly Respiratory: normal respiratory effort, lungs clear to auscultation normal respiratory effort Cardiovascular: RRR, no murmur, no edema Rate/Rhythm: regular rate and regular rhythm Heart Sounds: normal S1 and normal S2 Gastrointestinal (Abdomen): normal bowel sounds, soft, nontender, no hepatosplenomegaly Percussion/Palpation: abdomen soft Musculoskeletal: no cyanosis or clubbing, extremities motor strength 5/5 Skin: no rashes, warm and dry Neurologic: awake Psychiatric: Orientation: alert and oriented x 3 Results & Data ([facility]) Vital Signs (Past 12 Hours) Vital Signs Temp Pulse Resp BP Pulse Ox 03/24/20 09:28 128/83 03/24/20 07:51 36.5 C 58 L 17 160/93 H 95
--- NOTE | 2020-03-24 13:30 | Discharge Summary (DS) ---
ADMITTING DIAGNOSES: Small-bowel obstruction with urinary tract infection. DISCHARGE DIAGNOSES: Small-bowel obstruction with urinary tract infection. OPERATION: None. DETAILS OF DISCHARGE SUMMARY: This is a 55-year-old female who was admitted to the hospital with abdominal pain, nausea and vomiting. CT scan diagnosed as small-bowel obstruction and also urine infection by urinalysis. The patient was admitted to the hospital for conservative treatment. We gave the patient n.p.o., IV fluids, NG tube and IV antibiotic treatment. After 2 days, the patient passed gas and passed stool. We removed the NG tube. We gave the patient clear diet and later on we gave the patient full liquid diet; the patient tolerated the diet. No abdominal pain, no nausea, no vomiting, no temperature. PHYSICAL EXAMINATION: VITAL SIGNS: Temperature is 36.5, respiratory rate is 17, heart rate is 60, blood pressure 137/78, O2 saturation 95% on room air. GENERAL: The patient is alert, awake, oriented x3. HEENT: Within normal limitation. NEUROLOGIC: Intact. NECK: No JVD. CHEST: Bilateral lung sounds clear. HEART: Normal S1, S2. No murmur. ABDOMEN: Soft, no tenderness. Not distended. Bowel sounds positive. EXTREMITIES: No edema. The patient wanted to go home. We gave patient the care instructions. The patient understands. I will follow outpatient in 2 weeks. All the labs are normal. WBC is normal.
--- NOTE | 2020-04-09 08:55 | Coding Query ---
CODING QUERY To promote full compliance with coding requirements relating to patient care, provider participation is requested in all cases of coat agent uncertainty. Please assist us with the question(s) below: Coding Question(s): Documentation on progress note 03/23/20 states, "small bowel obstruction: likely secondary to intra-abdominal adhesions in setting of recent umbilical hernia repair with mesh." Please clarify below: ( ) Small Bowel Obstruction is a Complication of the Hernia Repair (x ) Small Bowel Obstruction is not a Complication of the Hernia Repair ( ) Small Bowel Obstruction is Expected Outcome ( ) Other Please Explain: Thank you Mariano García Principal Diagnosis: "that condition established after study, to be chiefly responsible for occasioning the admission of the patient to the hospital for care." Co-Existing Principal Diagnosis: "when two or more diagnoses equally meet the criteria for principal diagnosis as determined by the circumstances of admission, diagnostic work up, and/or therapy provided, and the Alphabetic Index, Tabular List, or another coding guideline does not provide sequencing direction, any one of the diagnoses may be sequenced first." "When the physician has documented what appears to be a current diagnosis in the body of the record, but has not included the diagnosis in the final diagnostic statement, the physician should be asked whether the diagnosis should be added." (Source [facility]oding [facility] 2 QTR90. p3-4) PATRICIA
== END 2020-03-24 13:02 | disposition home or self-care (01) | DRG 389 ==
LOC: ED 11:51 → 3E 15:35

== ENCOUNTER 2021-03-18 14:56 | Observation (INO) ==
[2021-03-18] MEDS ORDERED: ASPIRIN 81 MG CHEW PO STA (15:01)
--- NOTE | 2021-03-18 15:22 | Emergency Department Note ---
Impression & Plan Unstable angina, Elevated troponin ED Provider Note Name: FLORENTIN Camacho PAGE Age: 55 Sex: F Arrives Via: Walk-In Informant: Patient ED Provider: Graham Edmondson MD Chief Complaint: Chest pain Impression: As per impressions above Medical Decision Makin-year-old female with history of GERD, hypertension, dyslipidemia and anxiety/depression arrives with 1 to 2 weeks of exertional chest pain. On arrival here she is in no distress and looking well. She is already had a stress test this morning which was concerning for LAD cardiac ischemia. Her work-up is with positive troponin and otherwise labs and EKG are unremarkable. This is consistent with unstable angina/NSTEMI. As she is going straight to the Pharmacologist she was given aspirin 324 mg p.o. and taken there urgently. Throughout patient's stay here she is stable no distress and cooperative. Patient does not exhibit evidence of PE, dissection nor she is septic at this time. I did consult hospitalist this patient will require hospitalization post-cath. 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 Vital Signs: reviewed and remarkable for no significant abnormalities Interventions: Aspirin 324 mg p.o. Labs:Reviewed and remarkable for positive troponin Imagin view chest x-ray unremarkable without mediastinal dilation nor infiltrate/effusion/pneumothorax EKG:Per My Interpretation: Indication Chest pain: sinus with 1st av block 71 bpm, qtc 452. No Ectopy. No Ischemia. Compared to EKG 05/25/10 , no significant changes. Cardiac/Tele Monitoring: Cardiac Monitoring: An Order was placed for continuous cardiac monitoring. The monitor shows a rate of 70 with a normal sinus rhythm. Consults:Dr Hayes Cardiology, Dr Leon via Cath Team, Dr Curtis Alexander Hospitalist Plan: Disposition:Hospitalization. Condition: Good History of Present Illness:55-year-old female arrives for evaluation of chest pain. Patient notes the last 2 weeks she has had increasing exertional chest pain. Her PCP had set up a stress test which was done this afternoon. During the stress test she developed acute onset chest pain and EKG concerning for acute ischemia of LAD region. Patient stress test was stopped and she was given nitro with resolution of chest pain. She was sent emergently to the ER for further evaluation. Her manager operations called to advised that she would likely require interventional cardiology and he has already contacted them. Patient states she is currently feeling well without any complaints. She admits the chest pain but denies any other symptoms. She denies any syncope, shortness of breath, cough, fevers, back pain, nausea, vomiting, abdominal pain, headaches, rashes, bleeding , bruising, epigastric pain, black/bloody stools or other symptoms. She has extensive family history of CAD and father had CO in his 50s. Patient has a history of hypertension and dyslipidemia without diabetes or smoking history. Patient has no history of smoking nor previous CAD issues. Patient states that exertion makes worse and rest makes better. She did receive nitroglycerin prior to arrival but states she did not receive aspirin. ROS: See above HPI for pertinent positives & negatives. A total of 10 systems reviewed and were otherwise negative. Past Medical History:Hypertension, hyperlipidemia, anxiety/depression, COPD Past Surgical History:Small bowel resection secondary to small bowel obstruction, partial hysterectomy Family History:Father CO in his 50s, multiple family members with CAD and hypertension on father side Social History:Patient is a non-smoker Home Medications:Amlodipine, lisinopril/hydrochlorothiazide, sertraline, omeprazole, atorvastatin await Allergies:No known drug allergies Vitals:Blood Pressure: 120/71, Pulse 74, RR 16, T 36.3C, O2 96% on RA Physical Exam: GENERAL: Patient is well appearing and in no acute distress. EYES: No scleral icterus, unremarkable pupils. ENT: Mucous membranes moist, no nasal congestion. NECK: No masses appreciated, nomeningismus, trachea is midline. RESPIRATORY: No dyspnea. Clear to auscultation and equal bilaterally. No wheeze, no rhonchi. CARDIOVASCULAR: Regular rate and rhythm.No murmurs, rubs, gallops appreciated. GASTROINTESTINAL: Abdomen soft, non-tender, no peritonitis.Bowel sounds positive.No masses appreciated. BACK: No midline tenderness, no CVA tenderness EXTREMITIES: Normal motion all extremities, no cyanosis, no edema. NEUROLOGIC: Alert and oriented, no acute motor or sensory deficits, no focal weakness, cranial nerves grossly intact. SKIN: No rash, no jaundice, no diaphoresis. PSYCH: Appropriate GCS: 15 ED Course: Times/Reassessments: Patient comfortable stable throughout taken to Pharmacologist without difficulty Graham Edmondson MD Past Med/Surg History Medical History (Updated 03/18/21 @ 16:18 by Graham Edmondson MD) Depression with anxiety Dyslipidemia GERD (gastroesophageal reflux disease) Hypertension Obesity Surgical History History of partial hysterectomy Hx of umbilical hernia repair Family History Father Coronary heart disease Grandfather (Paternal) Coronary heart disease Stroke Mother Hypertension Grandmother (Maternal) Diabetes Social History Smoking Status: Never smoker Second Hand Exposure: No; Do You Dip or Chew Tobacco: No; Hx Alcohol Use: Yes Alcohol type: beer Hx Substance Use: No Preferred Language: Croatian Communication Ability: Effective Office Nurse Practitioner Required: No Beliefs That Will Affect Care: None marital status: Current Living Situation: Spouse current occupational status: employed Other Information That Helps Us Care for You: No Feels Safe at Home: Yes Safety Concerns: Feels Safe At This Time Assistive Devices: Glasses Allergies Allergies Allergy/AdvReac Type Severity Reaction Status Date / Time No Known Allergies Allergy Verified 03/18/21 15:37 Home Meds Home Medications Medication Instructions Recorded Confirmed atorvastatin 80 mg tablet 80 mg PO QAM 02/04/20 03/18/21 sertraline 100 mg tablet 200 mg PO QAM 02/04/20 03/18/21 amlodipine 5 mg tablet 5 mg PO QAM 03/21/20 03/18/21 naproxen 500 mg tablet 500 mg PO DAILY PRN 03/21/20 03/18/21 omeprazole 40 mg capsule,delayed 40 mg PO QAM 03/21/20 03/18/21 release lisinopril 10 1 tab PO DAILY 03/18/21 03/18/21 mg-hydrochlorothiazide 12.5 mg tablet Results & Data (ED) Vital Signs Vital Signs - 24 hr 03/18/21 14:59 03/18/21 15:23 Temperature 36.3 C L Temperature Source Temporal Artery Scan Pulse Rate 74 Pulse Rate [Apical] 69 Pulse Rhythm [Apical] Regular Pulse Strength [Apical] Normal Respiratory Rate 16 16 Respiratory Effort / Characteristics Non-Labored Spontaneous Non-Labored Spontaneous Respiratory Depth Normal Normal Respiratory Pattern Regular Regular Blood Pressure 120/71 Blood Pressure [Right Arm] 110/70 Blood Pressure Mean 87 Blood Pressure Mean [Right Arm] 83 Blood Pressure Position [Right Arm] Semi-fowlers Pulse Oximetry 96 97 Oxygen Delivery Method Room Air Room Air Sepsis Recent Fever Within 48 Hours No Sepsis New/Unexplained Change in Mental Status N/A Sepsis Action Taken by Nursing No Action Required Laboratory Data Result diagrams: 03/19/21 02:21 03/19/21 02:21 Lab Results 03/18/21 03/18/21 03/18/21 Range/Units 15:31 15:31 15:31 WBC 13.48 H (4.8-10.8) K/uL RBC 4.26 (4.2-5.4) M/uL Hgb 13.0 (12.0-16.0) g/dL Hct 39.0 (37-47) % MCV 91.5 (80-100) fL MCH 30.5 (25-34) pg MCHC 33.3 (32-36) g/dL RDW Std Deviation 47.4 H (36.4-46.3) fL RDW Coeff of Fadumo 14.2 (11.5-14.5) % Plt Count 272 (130-400) K/uL MPV 11.7 H (7.4-10.4) fL Immature Gran % (Auto) 0.2 % Neut % (Auto) 74.5 % Lymph % (Auto) 15.6 % Billings % (Auto) 7.7 % Eos % (Auto) 1.7 % Baso % (Auto) 0.3 % Neut # (Auto) 10.04 H (1.4-6.5) K/uL Lymph # (Auto) 2.10 (1.2-3.4) K/uL Billings # (Auto) 1.04 H (0.11-0.59) K/uL Eos # (Auto) 0.23 (0-0.5) K/uL Baso # (Auto) 0.04 (0-0.2) K/uL Immature Gran # (Auto) 0.03 H (0.00-0.02) K/uL PT 10.7 (9.0-12.0) Seconds INR 1.1 (0.9-1.1) APTT 23.6 (21.0-31.0) Seconds PTT Ratio 0.9 Activ Coag Time Kaolin (94-140) SECONDS Sodium 137 (136-145) mmol/L Potassium 3.5 (3.5-5.1) mmol/L Chloride 103 (98-107) mmol/L Carbon Dioxide 25 (21-32) mmol/L Anion Gap 9 (3-11) BUN 15 (6-23) mg/dl Creatinine 0.64 (0.6-1.2) mg/dl Est Cr Clr Drug Dosing 102.3 ml/min Est GFR ( Amer) 114.8 ml/min Est GFR (Non-Af Amer) 99.1 ml/min BUN/Creatinine Ratio 23.4 H (10-20) Glucose 88 (70-99(Fasting)) mg/dl Calcium 9.6 (8.5-10.1) mg/dl Troponin I 0.07 H* (0-0.04) ng/ml SARS-CoV-2, RNA, NAAT (NEGATIVE) 03/18/21 03/18/21 03/18/21 Range/Units 15:41 16:51 17:06 WBC (4.8-10.8) K/uL RBC (4.2-5.4) M/uL Hgb (12.0-16.0) g/dL Hct (37-47) % MCV (80-100) fL MCH (25-34) pg MCHC (32-36) g/dL RDW Std Deviation (36.4-46.3) fL RDW Coeff of Fadumo (11.5-14.5) % Plt Count (130-400) K/uL MPV (7.4-10.4) fL Immature Gran % (Auto) % Neut % (Auto) % Lymph % (Auto) % Billings % (Auto) % Eos % (Auto) % Baso % (Auto) % Neut # (Auto) (1.4-6.5) K/uL Lymph # (Auto) (1.2-3.4) K/uL Billings # (Auto) (0.11-0.59) K/uL Eos # (Auto) (0-0.5) K/uL Baso # (Auto) (0-0.2) K/uL Immature Gran # (Auto) (0.00-0.02) K/uL PT (9.0-12.0) Seconds INR (0.9-1.1) APTT (21.0-31.0) Seconds PTT Ratio Activ Coag Time Kaolin 237 H 267 H (94-140) SECONDS Sodium (136-145) mmol/L Potassium (3.5-5.1) mmol/L Chloride (98-107) mmol/L Carbon Dioxide (21-32) mmol/L Anion Gap (3-11) BUN (6-23) mg/dl Creatinine (0.6-1.2) mg/dl Est Cr Clr Drug Dosing ml/min Est GFR ( Amer) ml/min Est GFR (Non-Af Amer) ml/min BUN/Creatinine Ratio (10-20) Glucose (70-99(Fasting)) mg/dl Calcium (8.5-10.1) mg/dl Troponin I (0-0.04) ng/ml SARS-CoV-2, RNA, NAAT NEGATIVE (NEGATIVE) Administered Medications Amlodipine Besylate (Amlodipine Besylate 5 Mg Tab) 5 mg PO [facility] Stop: 04/18/21 08:59 Last Admin: 03/19/21 08:02 Dose: 5 mg Documented by: [id number] Aspirin (Aspirin 81 Mg Ectab) 81 mg PO [facility] Stop: 04/18/21 08:59 Last Admin: 03/19/21 08:03 Dose: 81 mg Documented by: [id number] Atorvastatin Calcium (Atorvastatin 40 Mg Tab) 80 mg PO [facility] Stop: 04/18/21 08:59 Last Admin: 03/19/21 08:04 Dose: 80 mg Documented by: [id number] Clopidogrel Bisulfate (Clopidogrel Bisulfate 75 Mg Tab) 75 mg PO [facility] Stop: 04/18/21 08:59 Last Admin: 03/19/21 08:03 Dose: 75 mg Documented by: [id number] Lisinopril/HCTZ (Lisinopril/Hctz 10/12.5mg Tab) 1 tab PO DAILY [facility] Stop: 04/18/21 08:59 Last Admin: 03/19/21 08:03 Dose: 1 tab Documented by: [id number] Pantoprazole Sodium (Pantoprazole 40 Mg Tab) 40 mg PO QAM JAISON; Protocol Stop: 04/18/21 08:59 Last Admin: 03/19/21 08:01 Dose: 40 mg Documented by: [id number] Sertraline HCl (Sertraline Hcl 100 Mg Tablet) 200 mg PO [facility] Stop: 04/18/21 08:59 Last Admin: 03/19/21 08:02 Dose: 200 mg Documented by: [id number] Discontinued Medications Aspirin (Aspirin 81 Mg Chew) 324 mg PO NOW [facility] Stop: 03/18/21 15:02 Last Admin: 03/18/21 15:45 Dose: 324 mg Documented by: [id number] Clopidogrel Bisulfate (Clopidogrel Bisulfate 300 Mg Tab) Confirm Administered Dose 600 mg .ROUTE .STK-MED ONE Stop: 03/18/21 17:08 Last Admin: 03/18/21 17:17 Dose: 600 mg Documented by: [id number] Fentanyl Citrate (Fentanyl Citrate 100 Mcg/2 Ml Vial) Confirm Administered Dose 100 mcg .ROUTE .STK-MED ONE Stop: 03/18/21 16:05 Last Increment: 03/18/21 17:00 Dose: 25 mcg Documented by: [id number] Heparin Sodium (Porcine) (Heparin (Porcine) 1000 Unit/Ml 10 Ml (Pharmacologist Use Only)) Confirm Administered Dose 10,000 units .ROUTE .STK-MED ONE Stop: 03/18/21 16:10 Last Admin: 03/18/21 17:00 Dose: 8,000 units Documented by: [id number] Heparin Sodium/Sodium Chloride (Heparin In Nss Infusion 1000 Unit/500 Ml (2 U/Ml) Bag) Confirm Administered Dose 3,000 units IV .STK-MED ONE Stop: 03/18/21 16:05 Last Admin: 03/18/21 17:00 Dose: 3,000 units Documented by: [id number] Sodium Chloride (Nss 1000ml) 1,000 mls @ 100 mls/hr IV .Q10H [facility] Stop: 03/19/21 01:29 Last Infusion: 03/19/21 02:04 Dose: 0 mls/hr Documented by: [id number] Admin: 03/18/21 18:11 Dose: 100 mls/hr Documented by: [id number] Midazolam HCl (Midazolam Hcl 1 Mg/Ml 2ml Vial) Confirm Administered Dose 2 mg .ROUTE .STK-MED ONE Stop: 03/18/21 16:04 Last Increment: 03/18/21 17:00 Dose: 1 mg Documented by: [id number] Nicardipine HCl (Nicardipine Hcl Inj 2.5 Mg/Ml 10 Ml Amp) Confirm Administered Dose 25 mg .ROUTE .STK-MED ONE Stop: 03/18/21 16:04 Last Admin: 03/18/21 17:00 Dose: 25 mg Documented by: [id number] Nitroglycerin/Dextrose (Nitroglycerin/D5w 100mcg/Ml 20ml Syr) Confirm Administered Dose 2,000 mcg .ROUTE .STK-MED ONE Stop: 03/18/21 16:05 Last Admin: 03/18/21 17:00 Dose: 2,000 mcg Documented by: [id number] Imaging Data Radiologist's Impression: Chest X-Ray 03/18/21 15:02 XR chest 1V portable CLINICAL HISTORY: chest pain. Nonsmoker COMPARISON STUDY: 03/21/2020 TECHNIQUE: 1 view of the chest FINDINGS: Single frontal view of the chest demonstrates the cardiomediastinal silhouette to be within normal limits. . There is a decreased inspiratory effort with elevation of the hemidiaphragms and crowding of the bronchovascular markings at the lung bases and centrally. The lungs are clear of alveolar opacities. There is no evidence for pleural effusion. There is no evidence for vascular conges tion. There is no acute osseous pathology. IMPRESSION: There is a decreased inspiratory effort with otherwise no acute chest disease. ACT 112: Negative or not required by law. Electronically signed by: Barry Horton M.D. 03/18/2021 4:09 PM Discharge Plan Visit Data Chief Complaint: Cardiac Assessment Stated Complaint: HAD CHEST PAINS,FAILED STRESS TEST,REF BY [employer] ED Provider: Graham Edmondson Discharge Problem: Unstable angina, Elevated troponin Patient Disposition: Admitted As Inpatient Discharge Instructions Interventions: ED Discharge Assessment Last Done: 03/18/21 17:13
--- NOTE | 2021-03-18 15:36 | History & Physical Report ---
Date of Service March 18, 2021 Assessment & Plan (1) Exertional angina: (2) Abnormal stress test: Plan: Patient is 55-year-old female with PMH HTN, dyslipidemia, depression, anxiety, GERD, obesity presented to ER from [facility] exertional CP x 4-6 weeks and today had abnormal stress test - anterior, septal ischemic changes and CP during stress test. Received 1 SL nitro with resolution of CP. FH: CAD In ER vitals stable. No acute ST elevation. Troponin: 0.07 In ER given aspirin 324mg Taken to blood and plasma laboratory assistant. Had 98% stenosis mid LAD. Received 2 overlapping RUSS to LAD Loaded with Plavix Will trend troponin Start Plavix, aspirin Continue atorvastatin Cardiology consult (3) Hypertension: Plan: Continue amlodipine, lisinopril, HCTZ (4) Dyslipidemia: Plan: Continue atorvastatin Lipid panel in am (5) Depression with anxiety: Plan: Continue sertraline (6) GERD (gastroesophageal reflux disease): Plan: Continue PPI (7) Obesity: Plan: BMI: 34 Recommend lifestyle modifications DVT Prophylaxis SCDs Full Code as per discussion with pt Follows with Dr Guzmán for routine care Pt was seen and care coordinated with Dr Acevedo. See addendum History of Present Illness Chief Complaint: Abnormal stress test Primary Care Provider: Esther Guzmán, Patient is 55-year-old female with PMH HTN, dyslipidemia, depression, anxiety, GERD, obesity presented to ER from [facility] for abnormal stress test. Patient with history of exertional chest pain described as burning that radiates to neck with exertion for the past 4 to 6 weeks. Chest pain relieved with rest. Today she had exercise stress test and during test developed chest pain which was relieved with 1 sublingual nitro. Reported anterior, septal ischemic changes. Patient was referred to ER for heart catheterization. She denies any current CP. Denies any associated SOB. Actually shoveled snow this morning without CP. Last ate cereal at 9:00AM today and had sips of tea after her stress test. Denies fever/chills, diaphoresis, N/V/D/C, GARCÍA, dizziness, syncope, vision changes, neck pain, orthopnea, palpitations, cough, sore throat, choking, otalgia, rhinorrhea, abdominal pain, paresthesias, weakness, extremity weakness, extremity edema, rashes, urinary symptoms. Allergies Allergy/AdvReac Type Severity Reaction Status Date / Time No Known Allergies Allergy Verified 03/18/21 15:37 Home Medications Medication Instructions Recorded Confirmed Type atorvastatin 80 mg tablet 80 mg PO QAM 02/04/20 03/18/21 History sertraline 100 mg tablet 200 mg PO QAM 02/04/20 03/18/21 History amlodipine 5 mg tablet 5 mg PO QAM 03/21/20 03/18/21 History naproxen 500 mg tablet 500 mg PO DAILY PRN 03/21/20 03/18/21 History omeprazole 40 mg capsule,delayed 40 mg PO QAM 03/21/20 03/18/21 History release lisinopril 10 1 tab PO DAILY 03/18/21 03/18/21 History mg-hydrochlorothiazide 12.5 mg tablet Past Med/Surg History Medical History (Updated 03/18/21 @ 16:18 by Graham Edmondson MD) Depression with anxiety Dyslipidemia GERD (gastroesophageal reflux disease) Hypertension Obesity Surgical History History of partial hysterectomy Hx of umbilical hernia repair Family History Father Coronary heart disease Grandfather (Paternal) Coronary heart disease Stroke Mother Hypertension Grandmother (Maternal) Diabetes Social History Smoking Status: Never smoker Second Hand Exposure: No; Do You Dip or Chew Tobacco: No; Hx Alcohol Use: Yes Alcohol type: beer Hx Substance Use: No Preferred Language: Amharic Communication Ability: Effective Spinning Bath Person Required: No Beliefs That Will Affect Care: None marital status: Current Living Situation: Spouse current occupational status: employed Other Information That Helps Us Care for You: No Feels Safe at Home: Yes Safety Concerns: Feels Safe At This Time Assistive Devices: Glasses Review of Systems Review of Systems: All systems reviewed & are unremarkable except as noted in HPI & below Physical Exam Physical Exam: General: no acute distress, obese Head: normocephalic, atraumatic Eyes: PERRL, EOM's intact, conjunctiva non-injected, anicteric ENT: normal inspection external ears, nose, mucous membranes moist Neck: supple, trachea midline Lungs: clear, no respiratory distress, no wheezing/rhonchi/rales CV: RRR, no murmur, no pretibial edema Abd: normal BS, soft, non-tender Ext: no cyanosis, no calf tenderness Neuro: A&O x 3, no focal deficits noted, normal affect Skin: warm, dry Results & Data Results & Data ([facility]) Vital Signs (Past 12 Hours) Vital Signs Temp Pulse Pulse Resp BP BP Pulse Ox 03/18/21 15:23 69 16 110/70 97 03/18/21 14:59 36.3 C L 74 16 120/71 96 Laboratory Results Short CBC 03/18/21 Range/Units 15:31 WBC 13.48 H (4.8-10.8) K/uL Hgb 13.0 (12.0-16.0) g/dL Hct 39.0 (37-47) % Plt Count 272 (130-400) K/uL BMP 03/18/21 15:31 Sodium 137 Potassium 3.5 Chloride 103 Carbon Dioxide 25 BUN 15 Creatinine 0.64 Glucose 88 Calcium 9.6 Cardiac Enzymes 03/18/21 Range/Units 15:31 Troponin I 0.07 H* (0-0.04) ng/ml Diagnostic Findings Chest X-Ray 03/18/21 15:02 XR chest 1V portable CLINICAL HISTORY: chest pain. Nonsmoker COMPARISON STUDY: 03/21/2020 TECHNIQUE: 1 view of the chest FINDINGS: Single frontal view of the chest demonstrates the cardiomediastinal silhouette to be within normal limits. . There is a decreased inspiratory effort with elevation of the hemidiaphragms and crowding of the bronchovascular markings at the lung bases and centrally. The lungs are clear of alveolar opacities. There is no evidence for pleural effusion. There is no evidence for vascular congestion. There is no acute osseous pathology. IMPRESSION: There is a decreased inspiratory effort with otherwise no acute chest disease. ACT 112: Negative or not required by law. Electronically signed by: Barry Horton M.D. 03/18/2021 4:09 PM Supervising Physician Co-Signing Physician Notes 55-year-old female w/ PMH of HTN, dyslipidemia, depression, anxiety, GERD, obesity, no PH of RI/blood clot presented 03/18 to our ED from PCP's office due to abnormal Stress test. Patient states she has been having exertional chest pain since last couple of months but no chest pain since last 2 weeks including today when she has shoveled the snow. But in the PCPs office, her stress test was abnormal with possible ischemia to LAD region per records. It was relieved with nitro and patient received a dose of aspirin in the ED. Patient underwent heart cath today s/p stents x2 to LAD, cardiology consulted, started on dual antiplatelets, resume home meds as appropriate, appreciate cardiology recommendations. Of note, patient has family history of coronary artery disease status post CABG x3 in her father in his age 57 and high cholesterol in her father side of the family. Labs reviewed, WBC elevated likely secondary to acute distress, continue to monitor. Troponin elevated, trend troponins. Upon examination: GENERAL: Alert and oriented x3. NAD, on RA. HEENT: No pallor, no icterus. Pupils equal, round and reactive to light. Oral mucosa moist. NECK: No JVD, no neck masses. HEART: S1 and S2 heard. Regular rate and rhythm. No murmur, no gallop. RESPIRATORY SYSTEM: Normal AP diameter. No accessory muscle use. No wheezing, no crackles. ABDOMEN: Soft, bowel sounds present, nontender, no distention. CENTRAL NERVOUS SYSTEM: No facial droop. Speech is clear. Obeys simple commands. Moves extremities. EXTREMITIES: No edema, no erythema seen. I have seen and examined the patient and have discussed the case with the provider above. I agree with the assessment and plan as stated.
[2021-03-18] MEDS ORDERED: LIDOCAINE 1% LOCAL 20 ML VIAL ONE (15:48)
[2021-03-18 15:49] LABS: Basophils # (auto) 0.04 K/uL (0-0.2); Basophils % (auto) 0.3 %; Eosinophils # (auto) 0.23 K/uL (0-0.5); Eosinophils % (auto) 1.7 %; Immature Granulocytes # (auto) 0.03 K/uL (0.00-0.02); Immature Granulocytes % (auto) 0.2 %; Lymphocytes % (auto) 15.6 %; Mean Corpuscular Hemoglobin 30.5 pg (25-34); Mean Corpuscular Hgb Conc 33.3 g/dL (32-36); Mean Corpuscular Volume 91.5 fL (80-100); Mean Platelet Volume 11.7 fL (7.4-10.4); Monocytes # (auto) 1.04 K/uL (0.11-0.59); Monocytes % (auto) 7.7 %; Neutrophils # (auto) 10.04 K/uL (1.4-6.5); Neutrophils % (auto) 74.5 %; Platelet Count 272 K/uL (130-400); RDW Coefficient of Variation 14.2 % (11.5-14.5); RDW Standard Deviation 47.4 fL (36.4-46.3); Red Blood Count 4.26 M/uL (4.2-5.4); White Blood Count 13.48 K/uL (4.8-10.8)
[2021-03-18] MEDS ORDERED: niCARdipine HCL INJ 2.5 MG/ML 10 ML AMP ONE (16:03)
[2021-03-18] MEDS ORDERED: MIDAZOLAM HCL 1 MG/ML 2ML VIAL ONE (16:03)
[2021-03-18] MEDS ORDERED: fentaNYL citrate 100 MCG/2 ML VIAL ONE (16:04)
[2021-03-18] MEDS ORDERED: NITROGLYCERIN/D5W 100MCG/ML 20ML SYR ONE (16:04)
[2021-03-18 16:08] LABS: INR 1.1 (0.9-1.1); Partial Thromboplastin Ratio 0.9; Partial Thromboplastin Time 23.6 Seconds (21.0-31.0); Prothrombin Time 10.7 Seconds (9.0-12.0)
[2021-03-18] MEDS ORDERED: HEPARIN (PORCINE) 1000 UNIT/ML 10 ML (CATH LAB USE ONLY) ONE (16:09)
--- NOTE | 2021-03-18 16:10 | XRay Report ---
XR chest 1V portable CLINICAL HISTORY: chest pain. Nonsmoker COMPARISON STUDY: 03/21/2020 TECHNIQUE: 1 view of the chest FINDINGS: Single frontal view of the chest demonstrates the cardiomediastinal silhouette to be within normal li mits. . There is a decreased inspiratory effort with elevation of the hemidiaphragms and crowding of the bronchovascular markings at the lung bases and centrally. The lungs are clear of alveolar opaciti es. There is no evidence for pleural effusion. There is no evidence for vascular congestion. There is no acute osseous pathology. IMPRESSION: There is a decreased inspiratory effort with otherwise no acute chest disease. ACT 112: Negative or not required by law. Electronically signed by: Barry Horton M.D. 03/18/2021 4:09 PM
[2021-03-18 16:15] LABS: BUN Creatinine Ratio 23.4 (10-20); Calcium 9.6 mg/dl (8.5-10.1); Creatinine Clr Calc Pharmacy 102.3 ml/min; Est GFR (African American) 114.8 ml/min; Est GFR (Non-African American) 99.1 ml/min; Potassium 3.5 mmol/L (3.5-5.1); Troponin I 0.07 ng/ml (0-0.04)
[2021-03-18] MEDS ORDERED: CLOPIDOGREL BISULFATE 300 MG TAB ONE (17:07)
--- NOTE | 2021-03-18 17:29 | Post Anesthesia Assessment ---
Date of Service March 18, 2021 Post Sedation Assessment Vital Signs Temp Pulse Pulse Resp BP BP Pulse Ox 03/18/21 15:23 69 16 110/70 97 03/18/21 14:59 97.3 F L 74 16 120/71 96 Recovery Score Activity: Moves 4 extremities Respiration: Deep Breath/Cough Circulation: +/-20% PreAnes Value Consciousness: Fully Awake Oxygen Saturation: O2 needed for >90% Discharge Sedation Level of Care: Fast Track Phase II Post Sedation Plan On clinical assessment, the patient appears to have tolerated the sedation without complications. Patient is recovering as anticipated. Patient will continue to be monitored by nursing and may be discharged when sedation discharge criteria are met per below protocol. Upon Completions of procedure up to 15 minutes continue every 5 minute vital signs and the P.A.R. score; then discharge to a Phase I or Fast Track to Phase II per the following guidelines: * Discharge Patient to appropriate Phase II area if PAR is 8 or greater or return to pre- procedure baseline. The post - procedure orders will be as directed. * If PAR score is less than 8 or not return to pre-procedure baseline then patient will follow Phase I monitoring till PAR is reached for Phase II. The Phase I may be done in procedure room or may call to secure a Phase I area. * If naloxone or flumazenil are used for reversal, hold in Phase I for continued monitoring from when last reversal dose was given for a minimum of 60 minutes or longer pending the nurse and/or physician discretion of patient condition before discharge to Phase II. Please call the Sedation Physician to re-evaluate and complete post-note for discharge to Phase II area. Do NOT discharge from procedure sedation or Phase 1 until post- sedation evaluation note is complete by procedure /sedation MD Sedation Discharge Instructions to be given to the patient at discharge to home.
--- NOTE | 2021-03-18 17:29 | Pre Anesthesia Assessment ---
Date of Service March 18, 2021 Pre Sedation Assessment Vital Signs Temp Pulse Pulse Resp BP BP Pulse Ox 03/18/21 15:23 69 16 110/70 97 03/18/21 14:59 97.3 F L 74 16 120/71 96 Cardiovascular RRR, no murmur, no edema Respiratory normal respiratory effort, lungs clear to auscultation Pre-Sedation Airway Assessment Smoking Status: Never smoker Hx Sleep Apnea: No Hx Difficult Intubation: No Short, Thick Neck: No Thyromental Distance: > or= 3.5 Finger Breadths Oral Cavity: + WNL Mallampati Class: II ASA: ASA3 Procedure Planning Contraindications for Sedation: none Current Medications Reviewed: Yes Notes The planned sedation has been discussed with the patient. Informed Consent was obtained. I have identified the patient, determined the appropriateness of sedation and have assessed the patient immediately prior to the procedure. All medicine(s) and interventions are by my order.
--- NOTE | 2021-03-18 17:32 | Cardiology Consultation ---
Date of Consultation March 18, 2021 Assessment & Plan (1) Unstable angina: Patient here with unstable angina and high risk stress test suggestive of LAD ischemia. Discussed risk, benefits, alternatives of cardiac catheterization and she is willing to proceed. Further recommendations pending findings of coronary angiography. Long-term follow-up with [facility] cardiology. History of Present Illness History of Present Illness 55-year-old woman with a history of hypertension, dyslipidemia, GERD seen in the ED after high risk stress test at [facility] office today. Patient endorsed several weeks of stuttering anterior chest pressure/burning pain. Symptoms somewhat better recently. Stress test today suggestive of high risk LAD lesion and recommended that she come directly to ED. Currently patient chest pain-free. ECG shows sinus rhythm with no ST abnormalities. Troponin 0.07. Allergies Allergy/AdvReac Type Severity Reaction Status Date / Time No Known Allergies Allergy Verified 03/18/21 15:37 Home Medications Medication Instructions Recorded Confirmed Type atorvastatin 80 mg tablet 80 mg PO QAM 02/04/20 03/18/21 History sertraline 100 mg tablet 200 mg PO QAM 02/04/20 03/18/21 History amlodipine 5 mg tablet 5 mg PO QAM 03/21/20 03/18/21 History naproxen 500 mg tablet 500 mg PO DAILY PRN 03/21/20 03/18/21 History omeprazole 40 mg capsule,delayed 40 mg PO QAM 03/21/20 03/18/21 History release lisinopril 10 1 tab PO DAILY 03/18/21 03/18/21 History mg-hydrochlorothiazide 12.5 mg tablet Patient History Medical History (Updated 03/18/21 @ 16:18 by Graham Edmondson MD) Depression with anxiety Dyslipidemia GERD (gastroesophageal reflux disease) Hypertension Obesity Surgical History History of partial hysterectomy Hx of umbilical hernia repair Family History Father Coronary heart disease Grandfather (Paternal) Coronary heart disease Stroke Mother Hypertension Grandmother (Maternal) Diabetes Social History Smoking Status: Never smoker Second Hand Exposure: No; Hx Alcohol Use: No Hx Substance Use: No Preferred Language: Latvian Communication Ability: Effective Film Loader Required: No Beliefs That Will Affect Care: None marital status: Current Living Situation: Family current occupational status: employed Feels Safe at Home: Yes Assistive Devices: Glasses Review of Systems Review of Systems: All systems reviewed & are unremarkable except as noted in HPI & below Physical Exam Physical Exam: General: Comfortable HEENT: Sclerae anicteric, Mask in place Lungs: Clear to auscultation bilaterally, no crackles or wheezes Cardiac: Regular rate and rhythm, no murmurs. Vascular: 2+ radial, DP pulses. No bruits Abdomen: Soft, nontender Extremities: Well perfused, no peripheral edema Neuro: Nonfocal Psych: Alert orient x3, normal affect and mood Results & Data ([facility]) Vital Signs (Past 12 Hours) Vital Signs Temp Pulse Pulse Resp BP BP Pulse Ox 03/18/21 15:23 69 16 110/70 97 03/18/21 14:59 97.3 F L 74 16 120/71 96 PG Care Time/CCT Total # of Minutes Spent Total Time Spent with Patient: Total time spent is greater than 50% in coordination of care (as documented) at patient's floor/unit and/or counseling patient: Coding Level of Care Code 92817 Office/OBS Consult Lvl 3 Diagnoses Unstable angina I20.0
[2021-03-18] MEDS ORDERED: ONDANSETRON INJ 2 MG/ML 2 ML VIAL IV PRN (17:46)
[2021-03-18] MEDS ORDERED: NITROGLYCERIN SL 0.4 MG/TAB TAB SL PRN (17:46)
[2021-03-18] MEDS ORDERED: ACETAMINOPHEN 325 MG TAB PO PRN (17:46)
--- NOTE | 2021-03-18 17:50 | Cardiac Catheterization ---
[facility] Data: Drop Clipper Cardiac Status Clinical evaluation leading to the procedure CAD Presenation: Positive Stress Test Anginal Classification: CCS III Heart Failure: No Cardiogenic Shock within 24 Hours: No Cardiac Arrest within 24 Hours: No Imaging Studies Past 6 Months: Yes Stress Studies Past 6 Months: Yes Stress Echocardiogram: Yes - Positive and Risk/Extent of Ischemia (High) Diagnostic Physicians Name: Indio Leon MD Status: Elective Closure Device Percutaneous Entry Location: Radial Closure Device: Radial Band Recommendations: PCI without planned CABG PCI Indication: + Stress Test Lesion Segment Name: Mid LAD Culprit Artery: Yes Stenosis Prior to Rx (%): 98 Chronic Total Occlusion: No IVUS: No FFR: No Pre-Procedure JIMY Flow: 2 Previously Treated Lesion: No Lesion Complexity: Non-High/Non-C Lesion Length (mm): 18 Thrombus Present: No Bifurcation Lesion: Yes Guidewire Across Lesion: Stenosis Post-Procedure (%): 0 Post-Procedure JIMY Flow: 3 Devices(s) Deployed: Yes Yes Intraprocedure Events Significant Disection: No Perforation: No Cardiac Cath Procedure Full Procedure Date March 18, 2021 Pre-Procedure Diagnosis Pre-Procedure Diagnosis: Angina and Positive Stress Test AUC Score AUC Score: 7 Post-Procedure Diagnosis Post-Procedure Diagnosis: Successful PCI and Normal Intracardiac Pressures Procedure(s) Performed Procedure(s) Performed: Coronary Angiography, Left Heart Cath and Drug Eluting Stent Pool Installer Indio Leon MD Network Operations Lead(s) Abbe Estimated Blood Loss Estimated Blood Loss: 15 Medication(s) Medication(s): Clopidogrel, Fentanyl, Heparin, Lidocaine 1%, Nicardipine, Nitroglycerin and Versed Summary of Findings Indication: High risk abnormal stress test Access: 6 Fr right radial artery Catheters: Unity EBU 3.5 guide Findings: LM -normal caliber, no significant disease LAD -medium caliber, mild diffuse proximal disease, 98% earlymid stenosis just prior to bifurcation with medium D1, 40 to 50% mid stenosis, distal vessel without significant disease and wraps around apex Circumflex -medium caliber, 30 to 40% stenosis in small distal vessel just after takeoff of OM 2. Medium OM 2 with 30% proximal. RCA -dominant, large caliber, proximal luminal irregularities, large PDA, PLB without significant disease. Faint [id number] collaterals to LAD LVEDP -7 -- PCI -- Antithrombotic therapy: Heparin, clopidogrel Procedure: Left main cannulated with EBU 3.5 guide Web Production Designer 50 wire passed across lesion into distal LAD Prowater wire placed into distal D1 Mid LAD lesion predilated with 2.5 compliant balloon Dilated lesion stented with 2.75 x 22 mm Jonathan from proximal LAD across takeoff of D1. Stent post-dilated with 3.0 noncompliant balloon IC vasodilators administered for spasm Prior 40 to 50% mid disease downstream from stent appeared more severe. Decision to place second stent (2.5 x 15 mm [place]). Stent postdilated with stent balloon Post procedure JIMY 3 flow, stents well expanded with minimal residual stenosis and no apparent cardiac complications. Arterial Closure: TR band Summary: 1. Severe single vessel coronary artery disease -98% earlymid LAD stenosis at bifurcation of D1 with faint right to left collaterals. 30% proximal OM 2, distal circumflex 2. Normal intracardiac filling pressure 3. Successful PCI of proximal to mid LAD with 2 overlapping drug-eluting stents (2.75 x 22, 2.5 x 15 mm Jonathan; postdilated with 3.0 NC). Recommendations: To PCU for continued monitoring Loaded with clopidogrel 600 mg in Drop Clipper Continue dual-antiplatelet therapy for at least 6 months Continue statin, and ASCVD risk factor modification Consult cardiac Rehab Hemodynamics Rest Ao:: 126/64/110 Final Ao: 102/59/77 LV: 92/7 Recommendations Recommendations: PCI without planned CABG Specimens Specimens: None Radiation Exposure (mGy) 2236 Contrast (mls) 120 Fluids (cc crystalloids) Fluids (cc crystalloids): 135 Drains Drains: None Anesthesia Moderate 3174-6544 Procedural Complication(s) None Disposition PCU I attest to the content of the Intraoperative Record and any orders documented therein. Any exceptions are noted below. [facility] Card Cath Procedure Codes Cardiac Catheterization Procedure 1: Cardiovascular Cath Procedures: 14177 Coronaries and LHC (+/-LV) Moderate Sedation Procedure 1: Sedation/Anesthesia: 49577 Mod Sedation by the same physician;Init15 Min Child Age 5 & Up Procedure 2: Sedation/Anesthesia: 83761 Mod Sedation by the same physician; Ea Addition al15 Minutes Stenting Procedure 1: Cardiovascular Stent Procedures: 52779 Perc transcatheter placement of intracoronary stent(s), with ang PG Care Time/CCT Total # of Minutes Spent Total Time Spent with Patient: Total time spent is greater than 50% in coordination of care (as documented) at patient's floor/unit and/or counseling patient:
[2021-03-18] MEDS ORDERED: SODIUM CHLORIDE 0.9% 1000ML 1,000 ML IV SCH (18:00)
[2021-03-19 02:31] LABS: Hematocrit (blood only) 35.2 % (37-47); Hemoglobin 11.4 g/dL (12.0-16.0); Mean Corpuscular Hemoglobin 29.8 pg (25-34); Mean Corpuscular Hgb Conc 32.4 g/dL (32-36); Mean Corpuscular Volume 92.1 fL (80-100); Mean Platelet Volume 11.2 fL (7.4-10.4); Platelet Count 235 K/uL (130-400); RDW Coefficient of Variation 14.3 % (11.5-14.5); RDW Standard Deviation 48.6 fL (36.4-46.3); Red Blood Count 3.82 M/uL (4.2-5.4); White Blood Count 9.99 K/uL (4.8-10.8)
[2021-03-19 02:52] LABS: BUN Creatinine Ratio 15.7 (10-20); Calcium 8.7 mg/dl (8.5-10.1); Chol HDL Ratio 5.6 (0-5); Creatinine Clr Calc Pharmacy 80.2 ml/min; Est GFR (African American) 90.7 ml/min; Est GFR (Non-African American) 78.3 ml/min; Potassium 3.2 mmol/L (3.5-5.1)
[2021-03-19] MEDS ORDERED: POTASSIUM CHLORIDE CRTAB 20 MEQ TABCR PO ONE (07:26)
[2021-03-19] MEDS: ATORVASTATIN 40 MG TAB PO SCH ×2 (08:04→08:37)
[2021-03-19] MEDS ORDERED: amLODIPine BESYLATE 5 MG TAB PO SCH (09:00)
[2021-03-19] MEDS ORDERED: PANTOprazole 40 MG TAB PO SCH (09:00)
[2021-03-19] MEDS ORDERED: LISINOPRIL/HCTZ 10/12.5MG TAB PO SCH (09:00)
[2021-03-19] MEDS ORDERED: ASPIRIN 81 MG ECTAB PO SCH (09:00)
[2021-03-19] MEDS ORDERED: CLOPIDOGREL BISULFATE 75 MG TAB PO SCH (09:00)
[2021-03-19] MEDS ORDERED: SERTRALINE HCL 100 MG TABLET PO SCH (09:00)
--- NOTE | 2021-03-19 10:13 | Electrocardiogram Report ---
Test Reason : Blood Pressure : / mmHG Vent. Rate : 068 BPM Atrial Rate : 068 BPM P-R Int : 250 ms QRS Dur : 082 ms QT Int : 434 ms P-R-T Axes : 052 027 049 degrees QTc Int : 461 ms Sinus rhythm with 1st degree A-V block Otherwise normal ECG When compared with ECG of 18-MAR-2021 15:16, No significant change was found Confirmed by Mark Jane ([id number]) on 03/19/2021 10:13:27 AM Referred By: Esther Guzmán Confirmed By:Mark Jane
--- NOTE | 2021-03-19 10:13 | Electrocardiogram Report ---
Test Reason : Blood Pressure : / mmHG Vent. Rate : 071 BPM Atrial Rate : 071 BPM P-R Int : 248 ms QRS Dur : 084 ms QT Int : 416 ms P-R-T Axes : 047 016 037 degrees QTc Int : 452 ms Sinus rhythm with 1st degree A-V block Otherwise normal ECG When compared with ECG of 25-MAY-2010 12:20, No significant change was found Confirmed by Mark Jane ([id number]) on 03/19/2021 10:13:18 AM Referred By: Confirmed By:Mark Jane
--- NOTE | 2021-03-19 11:22 | Cardiology Progress Note ---
Date of Service March 19, 2021 Assessment & Plan (1) Exertional angina: (2) History of coronary artery stent placement: Plan: From a cardiology standpoint the patient can be discharged to outpatient follow- up. I will arrange follow-up with our clinic. Admission and Anticipated Discharge Date Admission Date: March 18, 2021 Subjective EF patient was admitted from our clinic after an abnormal exercise stress echocardiogram. She underwent a cardiac catheterization yesterday and received a drug-eluting stent within the LAD. She has no complaints today. Review of Systems Review of Systems: Review of Systems: See HPI for pertinent positives. All other 10 point review of systems are negative. Physical Exam Physical Exam: General: no acute distress and stated age Head: normocephalic, no masses, lesions, tenderness or abnormalities Eyes: conjunctiva are pink and non-injected, sclera clear Neck: supple, no adenopathy, no bruits, normal jugular venous pulse, no hepatojugular reflux Chest: normal shape and normal respiratory effort Lungs: clear to auscultation and percussion Cardiac Exam: - regular rate & rhythm, no murmurs gallops or rubs - normal S1, normal S2 Pulses: 2(+) throughout Abdomen: abdomen soft, non-tender, no abnormal masses and no hepatosplenomegaly Musculoskeletal: no gait disturbance, no joint inflammation, no deforming arthritis Extremities: no edema and no cyanosis, cath site looks good Neuro: grossly normal exam Results & Data ([facility]) Vital Signs (Past 12 Hours) Vital Signs Temp Pulse Resp BP Pulse Ox 03/19/21 08:04 36.8 C 65 19 122/77 95 03/19/21 03:35 36.6 C 57 L 20 133/78 96 Laboratory Results Laboratory Results - last 24 hr 03/18/21 03/18/21 03/18/21 15:31 15:31 15:31 WBC 13.48 H RBC 4.26 Hgb 13.0 Hct 39.0 MCV 91.5 MCH 30.5 MCHC 33.3 RDW Std Deviation 47.4 H RDW Coeff of Fadumo 14.2 Plt Count 272 MPV 11.7 H Immature Gran % (Auto) 0.2 Neut % (Auto) 74.5 Lymph % (Auto) 15.6 [place] % (Auto) 7.7 Eos % (Auto) 1.7 Baso % (Auto) 0.3 Neut # (Auto) 10.04 H Lymph # (Auto) 2.10 [place] # (Auto) 1.04 H Eos # (Auto) 0.23 Baso # (Auto) 0.04 Immature Gran # (Auto) 0.03 H PT 10.7 INR 1.1 APTT 23.6 PTT Ratio 0.9 Activ Coag Time Kaolin Sodium 137 Potassium 3.5 Chloride 103 Carbon Dioxide 25 Anion Gap 9 BUN 15 Creatinine 0.64 Est Cr Clr Drug Dosing 102.3 Est GFR ( Amer) 114.8 Est GFR (Non-Af Amer) 99.1 BUN/Creatinine Ratio 23.4 H Glucose 88 Calcium 9.6 Troponin I 0.07 H* Triglycerides Cholesterol LDL Cholesterol, Calc VLDL Cholesterol, Calc HDL Cholesterol Cholesterol/HDL Ratio SARS-CoV-2, RNA, NAAT 03/18/21 03/18/21 03/18/21 15:41 16:51 17:06 WBC RBC Hgb Hct MCV MCH MCHC RDW Std Deviation RDW Coeff of Fadumo Plt Count MPV Immature Gran % (Auto) Neut % (Auto) Lymph % (Auto) [place] % (Auto) Eos % (Auto) Baso % (Auto) Neut # (Auto) Lymph # (Auto) [place] # (Auto) Eos # (Auto) Baso # (Auto) Immature Gran # (Auto) PT INR APTT PTT Ratio Activ Coag Time Kaolin 237 H 267 H Sodium Potassium Chloride Carbon Dioxide Anion Gap BUN Creatinine Est Cr Clr Drug Dosing Est GFR ( Amer) Est GFR (Non-Af Amer) BUN/Creatinine Ratio Glucose Calcium Troponin I Triglycerides Cholesterol LDL Cholesterol, Calc VLDL Cholesterol, Calc HDL Cholesterol Cholesterol/HDL Ratio SARS-CoV-2, RNA, NAAT NEGATIVE 03/18/21 03/19/21 03/19/21 20:53 02:21 02:21 WBC 9.99 RBC 3.82 L Hgb 11.4 L Hct 35.2 L MCV 92.1 MCH 29.8 MCHC 32.4 RDW Std Deviation 48.6 H RDW Coeff of Fadumo 14.3 Plt Count 235 MPV 11.2 H Immature Gran % (Auto) Neut % (Auto) Lymph % (Auto) [place] % (Auto) Eos % (Auto) Baso % (Auto) Neut # (Auto) Lymph # (Auto) [place] # (Auto) Eos # (Auto) Baso # (Auto) Immature Gran # (Auto) PT INR APTT PTT Ratio Activ Coag Time Kaolin Sodium Potassium Chloride Carbon Dioxide Anion Gap BUN Creatinine Est Cr Clr Drug Dosing Est GFR ( Amer) Est GFR (Non-Af Amer) BUN/Creatinine Ratio Glucose Calcium Troponin I 0.08 H* 0.30 H* Triglycerides Cholesterol LDL Cholesterol, Calc VLDL Cholesterol, Calc HDL Cholesterol Cholesterol/HDL Ratio SARS-CoV-2, RNA, NAAT 03/19/21 02:21 WBC RBC Hgb Hct MCV MCH MCHC RDW Std Deviation RDW Coeff of Fadumo Plt Count MPV Immature Gran % (Auto) Neut % (Auto) Lymph % (Auto) [place] % (Auto) Eos % (Auto) Baso % (Auto) Neut # (Auto) Lymph # (Auto) [place] # (Auto) Eos # (Auto) Baso # (Auto) Immature Gran # (Auto) PT INR APTT PTT Ratio Activ Coag Time Kaolin Sodium 139 Potassium 3.2 L Chloride 106 Carbon Dioxide 27 Anion Gap 6 BUN 13 Creatinine 0.83 Est Cr Clr Drug Dosing 80.2 Est GFR ( Amer) 90.7 Est GFR (Non-Af Amer) 78.3 BUN/Creatinine Ratio 15.7 Glucose 111 H Calcium 8.7 Troponin I Triglycerides 158 H Cholesterol 186 LDL Cholesterol, Calc 121 VLDL Cholesterol, Calc 32 H HDL Cholesterol 33 Cholesterol/HDL Ratio 5.6 H SARS-CoV-2, RNA, NAAT Medications Administered Current Inpatient Medications Acetaminophen (Acetaminophen 325 Mg Tab) 650 mg PO Q4H PRN PRN Reason: Pain or Fever Stop: 04/17/21 17:45 Amlodipine Besylate (Amlodipine Besylate 5 Mg Tab) 5 mg PO [facility] Stop: 04/18/21 08:59 Last Admin: 03/19/21 08:02 Dose: 5 mg Documented by: Aspirin (Aspirin 81 Mg Ectab) 81 mg PO [facility] Stop: 04/18/21 08:59 Last Admin: 03/19/21 08:03 Dose: 81 mg Documented by: Atorvastatin Calcium (Atorvastatin 40 Mg Tab) 80 mg PO [facility] Stop: 04/18/21 08:59 Last Admin: 03/19/21 08:37 Dose: 80 mg Documented by: Clopidogrel Bisulfate (Clopidogrel Bisulfate 75 Mg Tab) 75 mg PO [facility] Stop: 04/18/21 08:59 Last Admin: 03/19/21 08:03 Dose: 75 mg Documented by: Lisinopril/HCTZ (Lisinopril/Hctz 10/12.5mg Tab) 1 tab PO DAILY [facility] Stop: 04/18/21 08:59 Last Admin: 03/19/21 08:03 Dose: 1 tab Documented by: Nitroglycerin (Nitroglycerin Sl 0.4 Mg/Tab Tab) 0.4 mg SL UD PRN PRN Reason: Chest Pain Stop: 04/17/21 17:45 Ondansetron HCl (Ondansetron Inj 2 Mg/Ml 2 Ml Vial) 4 mg IV Q6H PRN PRN Reason: Nausea Stop: 04/17/21 17:45 Pantoprazole Sodium (Pantoprazole 40 Mg Tab) 40 mg PO [facility]; Protocol Stop: 04/18/21 08:59 Last Admin: 03/19/21 08:01 Dose: 40 mg Documented by: Sertraline HCl (Sertraline Hcl 100 Mg Tablet) 200 mg PO [facility] Stop: 04/18/21 08:59 Last Admin: 03/19/21 08:02 Dose: 200 mg Documented by:
--- NOTE | 2021-03-19 11:56 | Discharge Summary ---
Date of Service March 19, 2021 Admission HPI Per Admitting Provider Patient is 55-year-old female with PMH HTN, dyslipidemia, depression, anxiety, GERD, obesity presented to ER from [facility] for abnormal stress test. Patient with history of exertional chest pain described as burning that radiates to neck with exertion for the past 4 to 6 weeks. Chest pain relieved with rest. Today she had exercise stress test and during test developed chest pain which was relieved with 1 sublingual nitro. Reported anterior, septal ischemic changes. Patient was referred to ER for heart catheterization. She denies any current CP. Denies any associated SOB. Actually shoveled snow this morning without CP. Last ate cereal at 9:00AM today and had sips of tea after her stress test. Denies fever/chills, diaphoresis, N/V/D/C, GARCÍA, dizziness, syncope, vision changes, neck pain, orthopnea, palpitations, cough, sore throat, choking, otalgia, rhinorrhea, abdominal pain, paresthesias, weakness, extremity weakness, extremity edema, rashes, urinary symptoms. Principal Diagnosis Angina Coronary Artery Disease Abnormal Stress test Discharge Exam Patient felt well. Denies chest pain, shortness of breath right wrist +radial pulse, no bleeding, no bruising Lungs are clear, no wheezing/rhonchi/rales Regular rate and rhythm Discharge Data Allergies Allergy/AdvReac Type Severity Reaction Status Date / Time No Known Allergies Allergy Verified 03/18/21 15:37 Consultations 03/18/21 15:16 Consult Cardiology Stat ED Decision to Admit Stat 03/18/21 17:46 Consult Cardiology Routine 03/18/21 17:51 Consult Cardiac Rehabilitation Routine Procedures Performed Operation Date: 03/18/21 16:15 Actual Procedures p Cineradiography w/Routine Exam - Cal Leon MD Ordered Studies 03/18/21 16:01 CL Cath Imgs for PACS use only Stat Hospital Course (1) Exertional angina: see #2 (2) Abnormal stress test: LHC with 98% lesion in LAD status post RUSS x 2 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 Patient will need to follow up with Cardiology after discharge Rx for nitroglycerin SL PRN for chest pain Chest pain free at discharge (3) Hypertension: Continue amlodipine, lisinopril, HCTZ (4) Dyslipidemia: Continue atorvastatin 80mg QHS (5) Depression with anxiety: Continue sertraline (6) GERD (gastroesophageal reflux disease): Omeprazole discontinued to avoid interaction with plavix Started pepcid BID PRN for symptom relieve (7) Obesity: BMI: 34 Recommend lifestyle modifications Total Time Total Time Spent Total Time Spent (In Minutes): 35 Discharge Plan Discharge Items Patient Disposition: Home - Self-Care Reason For Visit: ANGINA Discharge Diagnosis: Angina Abnormal Stress test LAD with 98% lesion status post RUSS x 2 Condition on Discharge: Good Activity: Resume your previous activity Bathing: Keep incision dry Driving/Machine Use: No limitations Non-emergency contact: Primary Care Provider and Charging Plug Placer Call non-emergency contact if: you have any medication questions and your symptoms worsen Follow-up/Referrals: Esther Guzmán DO [Primary Care Provider] - Diet: Heart Healthy Addtl Attending Provider Instructions: You were admitted for chest pain and abnormal stress test You had a cardiac catheterization here which showed 98% lesion in her LAD which received 2 drug eluting stents After the procedure, you are doing well It is very important that you take your medications as prescribed especially aspin and plavix Pending Studies at Discharge: No Stand-Alone Forms: My [employer], Smoking Cessation Medications and DC Order Prescriptions: New acetaminophen 325 mg Tablet 650 mg PO Q4H PRN (Reason: pain) 30 Days Qty: 30 RF: 0 clopidogrel 75 mg Tablet 75 mg PO QAM 365 Days Qty: 30 RF: 2 aspirin 81 mg Tablet,Delayed Release (Dr/Ec) 81 mg PO QAM 365 Days Qty: 30 RF: 2 nitroglycerin [Nitrostat] 0.4 mg Tablet, Sublingual 0.4 mg sublingual UD PRN (Reason: chest pain) Qty: 30 RF: 0 famotidine [Pepcid] 40 mg tablet 40 mg PO BID PRN (Reason: heartburn) Qty: 60 RF: 0 Continued atorvastatin 80 mg tablet 80 mg PO QAM RF: 0 sertraline 100 mg tablet 200 mg PO QAM RF: 0 amlodipine 5 mg tablet 5 mg PO QAM RF: 0 lisinopril-hydrochlorothiazide 10-12.5 mg tablet 1 tab PO DAILY RF: 0 Discontinued omeprazole 40 mg capsule,delayed release(DR/EC) 40 mg PO QAM RF: 0 naproxen 500 mg tablet 500 mg PO DAILY PRN (Reason: Pain) RF: 0 Discharge Orders: Discharge Order (Routine); Ordered 03/19/21 Ordered By: Shakeel Aiken/Other Patient Handouts: Heart Disease Women Admission Data Admit Date/Time: 03/18/21 17:26 Attending Provider: Shakeel Martinez Admit Provider: Ada Acevedo Primary Care Provider: Esther Guzmán Other Providers: Cal Leon ; Ada Acevedo ; Alejandro Rios
== END 2021-03-19 12:42 | disposition home or self-care (01) ==
LOC: ED 14:56 → 2S 17:13 → SUATTDRO 17:26 → 2S 17:26 → INTOOBSV 17:26
DX: Z95.5 Presence of coronary angioplasty implant and graft; I25.110 Atherosclerotic heart disease of native coronary artery with unstable angina pectoris; Z79.899 Other long term (current) drug therapy; K21.9 Gastro-esophageal reflux disease without esophagitis; I10 Essential (primary) hypertension; E66.9 Obesity, unspecified; E78.5 Hyperlipidemia, unspecified